=== PATIENT | male | born 1935 | race Caucasian/White ===

== ENCOUNTER 2019-12-03 09:50 | Emergency (ER) | payer MEDICARE ==
[2019-12-03 10:10] LABS: ABS Basophils 0.1 10^3/ul (0-0.2); ABS Eosinophils 0.1 10^3/ul (0-0.6); ABS Lymphocytes 1.5 10^3/ul (1.0-4.8); ABS Monocytes 0.5 10^3/ul (0-0.8); ABS Neutrophils 5.1 10^3/ul (1.5-7.7); Eosinophil % 1.9 %; Hematocrit 40 % (42-52); Hemoglobin 13.5 g/dL (14.0-18.0); Lymphocyte % 20.8 %; Mean Corpuscular HGB Conc 34 g/dL (31-36); Mean Corpuscular Hemoglobin 27 pg (27-31); Mean Corpuscular Volume 81 fL (80-94); Mean Platelet Volume 6.6 fL (7.4-10.4); Platelet Count 306 10^3/uL (150-450); Red Blood Count 4.97 10^6 /uL (4.18-5.48); Red Cell Distribution Width 16 % (10-15); White Blood Count 7.4 10^3/uL (3.5-10.8)
--- OUTSIDE RECORDS SUMMARY | 2019-12-03 10:11 | XMS REPORT | Summary of Care ---
:1935 Author Organization [facility] Address [address] [place] [address] Care Team Providers Name Role Phone Emily Pineda Primary Care Provider Reason for Visit Reason Comments Follow Up to labs , pt c/o mucus cough with brown in color Encounter Details Date Type Department Care Team Description 11/15/2019 Office Visit Noelle Pineda, Uncontrolled type 2 diabetes mellitus with complication, without long-term current use of insulin ( HCC) (Primary Dx); Practice MD Emily Chronic cough; [address] [facility] [address] Dyslipidemia; [place], [place] [id number] [place] [id number] Essential hypertension; [phone] Elevated blood protein; Atrial fibrillation, unspecified type (HCC) Allergies No Known Allergiesdocumented as of this encounter (statuses as of 11/15/2019) Medications Medication Sig Dispensed Refills Start Date End Date Status Multiple Vitamin (MULTI Take by mouth. 0 Active VITAMIN DAILY PO) Colchicine 0.6 MG Oral Take 0.6 mg by 10 Cap 2 05/22/2017 Active Cap mouth TWICE DAILY. Additional information Patient taking differently: 0.6 mg Oral PRN, Reported on 07/23/2017 10:04 AM amLodipine (NORVASC) 5 MG TAKE ONE TABLET BY MOUTH 90 Tab 1 06/07/2019 Active Oral Tab EVERY DAY ELIQUIS 2.5 MG Oral Tab TAKE ONE TABLET BY MOUTH 180 Tab 1 06/07/2019 Active TWICE A DAY ACCU-CHEK ARTURO PLUS In USE TO TEST TWICE A DAY 100 Strip 5 06/28/2019 Active Vitro StripIndications: Type DIRECTED 2 diabetes mellitus without complication, without long-term current use of insulin (HCC) simvastatin (ZOCOR) 40 MG TAKE ONE TABLET BY MOUTH 90 Tab 1 07/26/2019 Active Oral Tab EVERY DAY glipiZIDE (GLUCOTROL) 5 MG TAKE ONE TABLET BY MOUTH 90 Tab 1 07/26/2019 Active Oral Tab EVERY DAY allopurinol (ZYLOPRIM) 100 TAKE ONE TABLET BY MOUTH 90 Tab 1 08/12/2019 Active MG Oral Tab EVERY DAY Lancets Does not apply 1 Each by Does not apply 100 Each 5 09/01/2019 Active MiscIndications: Type 2 route TWICE DAILY. diabetes mellitus without Brand:insurance preferred complication, without non-Insulin dependent long-term current use of Test Blood Glucose 2 insulin (HCC) time(s) A DAY Blood Glucose Monitor 1 Device by Does not 1 Device 0 10/12/2019 Active Software Does not apply apply route DIRECTED. Device E11,9 diabetes. Brand: Insurance preferred Glucose Blood In Vitro Strip 1 Strip by In Vitro route 100 Each 1 2018 Active TWO TIMES DAILY BEFORE MEALS. E11.9 insurance preferred Lancets Does not apply Misc 1 Each by Does not apply 100 Each 1 10/12/2019 Active route TWICE DAILY. Brand: insurance preferred Dx: E11.9 Test Blood Glucose BID time(s) A DAY documented as of this encounter (statuses as of 11/15/2019) Active Problems Problem Noted Date Uncontrolled type 2 diabetes mellitus with complication, without long-term current use of insulin Abnormal stress test 12/23/2014 Paroxysmal atrial fibrillation 12/23/2014 PVD (peripheral vascular disease) 12/23/2014 Essential hypertension, benign 05/16/2014 Osteoarthritis 11/04/2013 Overview: Hand, knees, elbows, lower back. Basal cell cancer 11/04/2013 Overview: 2 lesions removed from back BMI 30.0-30.9,adult 05/20/2012 Overview: sustained wt reduction with portion control and sustained routine exercise. Set realistic goal of 1# wt reduction /week set 10 week goals. Obesity 10/19/2007 Neuropathic pain syndrome (non-herpetic) 06/21/2004 Overview: In legs. Occlusion and stenosis of carotid artery without mention of cerebral 2003 infarction Overview: Left carotid artery surgery and stent, 2003. Stable on right . Spinal stenosis 12/12/2003 Hyperlipidemia 12/24/1999 documented as of this encounter (statuses as of 11/15/2019) Resolved Problems Problem Noted Date Resolved Date Atrial fibrillation 12/26/2014 12/26/2014 Hypertension 12/24/1999 05/16/2014 Arthritis 12/24/1999 11/04/2013 documented as of this encounter (statuses as of 11/15/2019) Immunizations Name Administration Dates Next Due Influenza (IM) Preservative Free 08/25/2013, 08/12/2012, 09/26/2000 Influenza Vaccine 65 Yrs + 08/10/2019 Influenza Vaccine High Dose 06/04/2018, 06/26/2017, 07/10/2016, 08/19/2015 PNEUMOCOCCAL POLYSACCHARIDE VACCINE 10/04/2014, 09/26/2000 Pneumococcal Conjugate(13 Valent) 08/07/2016 TDAP Vaccine 11/22/2016 documented as of this encounter Social History Tobacco Use Types Packs/Day Years Used Date Former Smoker Cigarettes 1.5 25 Quit: 09/21/2000 Smokeless Tobacco: Never Used Alcohol Use Drinks/Week oz/Week Comments Yes rarely Sex Assigned at Date Recorded Not on file Job Start Date Occupation Industry Not on file Not on file Not on file Travel History Travel Start Travel End No recent travel history available. documented as of this encounter Last Filed Vital Signs Vital Sign Reading Time Taken Comments Blood Pressure 160/80 11/15/2019 8:54 AM EST Pulse 73 11/15/2019 8:54 AM EST Temperature 37.2 11/15/2019 8:54 AM EST C (99 F) Respiratory Rate - - Oxygen Saturation 95% 11/15/2019 8:54 AM EST Inhaled Oxygen Concentration - - Weight 87.1 kg (192 lb 1.6 oz) 11/15/2019 8:54 AM EST Height 171.5 cm (5' 7.5") 11/15/2019 8:54 AM EST Body Mass Index 29.64 11/15/2019 8:54 AM EST documented in this encounter Patient Instructions Patient InstructionsEmily Pineda MD - 11/15/2019 9:00 AM EST1. Take Augmentin 500 mg 2 times a day for 10 days 2. Take Flonase nasal spray 2 sprays in each nostril once a day 3. Take Mucinex 600 mg 2 times a day 4. Follow up in 2 weeks and as needed 5. Schedule fasting blood tests in 3 months documented in this encounter Progress Notes Emily Pineda MD - 11/15/2019 9:00 AM EST PATIENT: Armen Gonzalez : 1935 DATE OF SERVICE: 11/15/2019 Subjective SUBJECTIVE: Armen Gonzalez is a 84-y.o. male who presents for evaluation of productive cough with sputum described as brown, postnasal drip, some wheezing with cough. Symptoms began 2 months ago and are unchanged since that time. Former smoker. Quit in 1999 Diabetic Review of Systems - medication compliance: compliant all of the time, diabetic diet compliance: compliant most of the time, home glucose monitoring: is performed regularly, fasting values range 120-130, non fasting values range 90-115. BP is elevated today Past Medical History: Diagnosis Date Atrial fibrillation ([facility]) Carotid stenosis CKD (chronic kidney disease) stage 3, GFR 30-59 ml/min ([facility]) CVA (cerebral vascular accident) ([facility]) 09/20/2000 HTN (hypertension) Hyperlipemia Sleep apnea uses CPAP Family History Problem Relation Age of Onset Diabetes Brother Stroke Brother Heart Son 49 [place] Diabetes Sister Hypertension Sister Heart Sister Kidney Disease Sister Current Outpatient Medications Medication Sig ACCU-CHEK ARTURO PLUS In Vitro Strip USE TO TEST TWICE A DAY DIRECTED allopurinol (ZYLOPRIM) 100 MG Oral Tab TAKE ONE TABLET BY MOUTH EVERY DAY amLodipine (NORVASC) 5 MG Oral Tab TAKE ONE TABLET BY MOUTH EVERY DAY Blood Glucose Monitor Software Does not apply Device 1 Device by Does not apply route DIRECTED. E11,9 diabetes. Brand: Insurance preferred Colchicine 0.6 MG Oral Cap Take 0.6 mg by mouth TWICE DAILY. (Patient taking differently: Take 0.6 mg by mouth NEEDED.) ELIQUIS 2.5 MG Oral Tab TAKE ONE TABLET BY MOUTH TWICE A DAY glipiZIDE (GLUCOTROL) 5 MG Oral Tab TAKE ONE TABLET BY MOUTH EVERY DAY Glucose Blood In Vitro Strip 1 Strip by In Vitro route TWO TIMES DAILY BEFORE MEALS. E11.9 insurance preferred Lancets Does not apply Misc 1 Each by Does not apply route TWICE DAILY. Brand:insurance preferred non-Insulin dependent Test Blood Glucose 2 time(s) A DAY Lancets Does not apply Misc 1 Each by Does not apply route TWICE DAILY. Brand: insurance preferred Dx: E11.9 Test Blood Glucose BID time(s) A DAY Multiple Vitamin (MULTI VITAMIN DAILY PO) Take by mouth. simvastatin (ZOCOR) 40 MG Oral Tab TAKE ONE TABLET BY MOUTH EVERY DAY No current facility-administered medications for this visit. No Known Allergies Social History Socioeconomic History Marital status: Spouse name: Not on file Number of children: Not on file Years of education: Not on file Highest education level: Not on file Occupational History Not on file Social Needs Financial resource strain: Not on file Food insecurity Worry: Not on file Inability: Not on file Transportation needs Medical: Not on file Non-medical: Not on file Tobacco Use Smoking status: Former Smoker Packs/day: 1.50 Years: 25.00 Pack years: 37.50 Types: Cigarettes Last attempt to quit: 09/21/2000 Years since quittin.1 Smokeless tobacco: Never Used Substance and Sexual Activity Alcohol use: Yes Comment: rarely Drug use: No Sexual activity: Not on file Lifestyle Physical activity Days per week: Not on file Minutes per session: Not on file Stress: Not on file Relationships Social connections Talks on phone: Not on file Gets together: Not on file Attends uatsdin service: Not on file Active member of club or organization: Not on file Attends meetings of clubs or organizations: Not on file Relationship status: Not on file Intimate partner violence Fear of current or ex partner: Not on file Emotionally abused: Not on file Physically abused: Not on file Forced sexual activity: Not on file Other Topics Concern Back Care Not Asked Bike Helmet Not Asked Blood Transfusions Not Asked Caffeine Concern Yes Comment: 4 cups coffee daily Exercise Not Asked Hobby Hazards Not Asked International Travel Not Asked Service Not Asked Occupational Exposure Not Asked Seat Belt Not Asked Self-Exams Not Asked Sleep Concern Not Asked Special Diet Not Asked Stress Concern Not Asked Weight Concern Not Asked Social History Narrative 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 and 3 sons. REVIEW OF SYSTEMS: All remaining review of systems was negative. Objective OBJECTIVE: BP (!) 160/80 (BP Location: Right arm, Patient Position: Sitting) | Pulse 73 | Temp 99 F (37.2C) | Ht 5' 7.5" (1.715 m) | Wt 192 lb 1.6 oz (87.1 kg ) | SpO2 95% | BMI 29.64 kg/m GENERAL: alert, fatigued. HEENT: neck without nodes, pharynx erythematous without exudate, sinuses non tender and postnasal drip noted. LUNGS: Reduced breath sound at the L base. HEART: regular rate and rhythm, S1, S2 normal, no murmur, click, rub or gallop. HGA1C - 8.3, CMP - elevated sugar, elevated T protein, CBC - elevated Platelets Component Latest Ref Rng & Units 11/08/2019 11/08/2019 11/08/2019 8:48 AM 8:48 AM 8:48 AM WBC COUNT 4.23 - 9.07 K/uL 7.99 RBC 4.30 - 5.89 M/UL 5.71 Hemoglobin 13.7 - 17.5 g/dL 14.9 Hematocrit 40.1 - 51.0 % 48.5 MCV 79.0 - 92.2 FL 84.9 MCH 25.7 - 32.2 PG 26.1 MCHC 32.3 - 36.5 g/dL 30.7 (L) Platelet Count 163 - 337 K/uL 343 (H) MPV 9.4 - 12.4 FL 9.2 (L) RDW 11.6 - 14.4 % 15.0 (H) NEUTROPHILS 34.0 - 67.9 % 71.1 (H) Lymphocyte % 21.8 - 53.1 % 17.8 (L) MONOCYTES 5.3 - 12.2 % 7.0 Eosinophils 0.8 - 7.0 % 2.5 Basophil % 0.2 - 1.2 % 1.1 nRBC % 0.0 - 0.2 % 0.0 Neutrophil # 1.78 - 5.38 K/UL 5.68 (H) Lymphocyte # 1.32 - 3.57 K/UL 1.42 Monocyte # 0.30 - 0.82 K/UL 0.56 Eosinophil # 0.04 - 0.54 K/UL 0.20 Basophil # 0.01 - 0.08 K/UL 0.09 (H) Immature Gran % 0.0 - 0.4 % 0.5 (H) Immature Gran # 0.00 - 0.03 K/uL 0.04 (H) NRBC # 0.00 - 0.12 K/uL 0.00 Sodium 134 - 145 mmol/L 137 Potassium 3.5 - 5.1 mmol/L 4.5 Chloride 98 - 107 mmol/L 100 CO2 22 - 30 mmol/L 28 Calcium 8.3 - 10.1 mg/dl 10.2 (H) Albumin 3.5 - 5.0 g/dl 4.3 BUN 9 - 20 mg/dl 20 Creatinine 0.8 - 1.5 mg/dl 1.2 Glucose (Lab) 70 - 99 mg/dl 125 (H) Protein,Total 6.3 - 8.2 g/dl 9.0 (H) Total Bilirubin 0.0 - 1.1 MG/DL 0.5 AST 17 - 59 U/L 30 ALT 21 - 72 U/L 25 ALKALINE PHOSPHATASE 40 - 150 U/L 112 eGFR See Interpretation Below ml/min/1.73ml Sq 58 BUN/Creatinine Ratio 6 - 22 RATIO 17 Anion Gap 3 - 11 mmol/L 9 A/G Ratio 0.8 - 2.0 ratio 0.9 Glycohemoglobin - POCT <=5.6 % 8.3 (H) Patient advised on tests results ICD-9-CM ICD-10-CM 1. Uncontrolled type 2 diabetes mellitus with complication, without long-term current use of insulin([facility]) 250.82 E11.8 Sugar diary - good readings over last month. Will continue to monitor E11.65 2. Chronic cough Likely chronic sinusitis, postnasal drip 786.2 R05 XR CHEST 2 VIEW PA AND LATERAL (STANDARD) 3. Dyslipidemia 272.4 E78.5 4. Essential hypertension Will recheck next visit Not on TOBI due to hyperkalemia 401.9 I10 5. Elevated blood protein 273.8 E88.09 6. Atrial fibrillation, unspecified type ([facility]) 427.31 I48.91 Patient Instructions 1. Take Augmentin 500 mg 2 times a day for 10 days 2. Take Flonase nasal spray 2 sprays in each nostril once a day 3. Take Mucinex 600 mg 2 times a day 4. Follow up in 2 weeks and as needed 5. Schedule fasting blood tests in 3 months Author: Emily Pineda MD 11/15/2019 09:25 documented in this encounter Plan of Treatment Date Type Specialty Care Team Description 11/15/2019 Ancillary Procedure Radiology Arrived 11/30/2019 Office Visit Family Practice Emily Pineda MD [address] [place] [address] [phone] 02/15/2020 Lab Internal Medicine 08/09/2020 Ancillary Procedure Radiology 08/09/2020 Office Visit Vascular Surgery Brittny Duque, [employer] [address] [address] Name Type Priority Associated Diagnoses Date/Time XR CHEST 2 VIEW PA AND Imaging Routine Chronic cough 11/15/2019 9:37 AM EST LATERAL (STANDARD) Name Type Priority Associated Diagnoses Order Schedule COMPREHENSIVE METABOLIC Lab Routine Uncontrolled type 2 Expected: 2019 PANEL diabetes mellitus with (Approximate), complication, without Expires: 11/15/2020 long-term current use of insulin (HCC) Dyslipidemia LIPID PROFILE Lab Routine Dyslipidemia Expected: 11/15/2019 (Approximate), Expires: 11/15/2020 GLYCOHEMOGLOBIN A1C Lab Routine Uncontrolled type 2 Expected: 11/15/2019 diabetes mellitus with (Approximate), complication, without Expires: 11/15/2020 long-term current use of insulin (HCC) CBC WITH DIFFERENTIAL Lab Routine Atrial fibrillation, Expected: 11/15/2019 unspecified type (HCC) (Approximate), Expires: 11/15/2020 PROTEIN ELECTRO, SERUM Lab Routine Elevated blood protein Expected: 2019 REFLEX (Approximate), Expires: 11/15/2020 Health Maintenance Due Date Last Done Comments Diabetic Eye Exam 12/23/2019 12/22/2018, 12/19/2017, 12/13/2016, Additional history exists DEPRESSION SCREENING 01/29/2020 01/28/2019 FOOT EXAM 01/29/2020 01/28/2019, 01/28/2019, 12/23/2017, Additional history exists URINE MICROALBUMIN 01/29/2020 01/28/2019, 12/23/2017, 11/22/2016 HEMOGLOBIN A1C 02/07/2020 11/08/2019, 08/03/2019, 04/28/2019, Additional history exists FALL RISK ASSESSMENT 05/05/2020 05/05/2019, 05/05/2019 MEDICARE ANNUAL WELLNESS 05/05/2020 05/05/2019, 12/23/2017, VISIT 11/22/2016, Additional history exists ZOSTER IMMUNIZATION SERIES 11/15/2020 Postponed from (1 of 2) 1986 (Vaccine not available) Colonoscopy 07/16/2021 07/16/2016 (Postponed), 08/26/2011, 08/23/2011 HIV SCREENING 05/21/2022 Postponed from 1951 (Other) DTaP/Tdap/Td Vaccines (2 - 11/22/2026 11/22/2016 Tdap) PNEUMOCOCCAL 65+YRS Completed 08/07/2016, 10/04/2014, 09/26/2000 INFLUENZA VACCINE Completed 08/10/2019, 06/04/2018, 06/26/2017, Additional history exists HEPATITIS A IMMUNIZATION Aged Out No longer eligible SERIES based on patient's age to complete this topic HPV IMMUNIZATION SERIES Aged Out No longer eligible based on patient's age to complete this topic MENINGOCOCCAL VACCINE IMM Aged Out No longer eligible based on patient's age to complete this topic documented as of this encounter Goals Goal Patient Goal Associated Recent Patient-Stated? Author Type Problems Progress Blood Pressure Blood Pressure Essential 160/80 No Miriam, < 140/90 hypertension, (11/15/2019 Emily, benign 8:54 AM EST) Note: Hypertension Care Plan Based on the patient's clinical history and according to JNC 8 guidelines target blood pressure goal is less than 140/90. Based on the patient's last blood pressure of BP: 160/86 the patient is at above goal. As your provider, it is important that I advise you regarding: your current medications and help you with any challenges you may face taking your medications as directed (ex. instructions, cost, side effects, and interactions). Important lifestyle changes: exercise and diet your clinical goals and how you can achieve success: exercise plan and diet improvements medication management: adjusted medications as appropriate patient education/self-management tools provided: Yes To successfully manage my Hypertension I will: monitor my blood pressure daily, understanding that my goal is less than 140/ 90 per my healthcare provider's recommendation. I will schedule an appointment with my provider if consistent abnormal readings greater than 160/100. take medications every day as prescribed by my healthcare provider and if unable to take them I will discuss with my provider. monitor for symptoms of chest pain, chest tightness/pressure, irregular heartbeat, persistent dizziness, radiating arm pain, and neck or jaw pain. If any of these symptoms are noticed I will seek medical attention immediately by calling 911 exercise/walk 30 minutes 5 day(s) per week. If I experience chest pain, chest tightness, or shortness of breath, I will seek medical attention immediately. follow a diet rich in fruits, vegetables, and low-fat dairy products with reduced content of saturated & total fat. I will reduce my sodium intake daily. An example is the DASH diet. To obtain more information please refer to the DASH Eating Plan listed in Educational Resources. record my blood pressure results. [employer] is safe and secure way for you to do this in your medical record online. try to obtain an ideal body weight. My recent weight was Weight: 201 lb ( 91.2 kg). My weight loss goal for my next office visit is 195. limit alcohol consumption. For men two drinks per day and women one drink per day. if currently smoking, will discuss how to quit smoking with my healthcare provider and work towards quitting. Educational Resources: National Heart, Lung, & Blood [place] http://nhlbi.nih.gov/hbp/index.html The DASH Diet Eating Plan http://www.nhlbi.nih.gov/health/health-topics/ topics/dash/ Academy of Nutrition & DIetetics http://eatright.org National Smoking Cessation Site http://smokefree.gov Blood Pressure < Blood Pressure 160/80 (11/15/2019 No Emily Pineda, 150/90 8:54 AM EST) Note: This is an individualized treatment (blood pressure) goal for Armen Zamarripa Lisa: Displayed above (on the left) is your goal for blood pressure control. Your most recent blood pressure is also shown above, on the right. You should try to achieve blood pressures that are lower than your goal listed above (on the left). Lifestyle < 7.0 Diabetes Uncontrolled type 2 8.3 (11/08/2019 No Miriam, diabetes mellitus 8:48 AM EST) MD Emily with complication, without long-term current use of insulin Note: Diabetes Care Plan According to current 2014 ADA guidelines the patient A1C goal is less than 7. The patient's last A1C was 7.4 The patient is:above goal . As your provider, it is important that I advise you regarding: your current medications and help you with any challenges you may face taking your medications as directed (ex. instructions, cost, side effects, and interactions). Important lifestyle changes:diet and glucose monitoring your clinical goals and how you can achieve success:diet management and glucose monitoring medication management: N/A diet only patient education/self-management tools provided: Yes To successfully manage my Diabetes I will: have lab work every six months if my previous A1c was 7 or less. If my results were greater than 7, I will have lab work every three months. My goal is to control my diabetes by keeping A1c below 7.0 take medications every day as prescribed by my healthcare provider and if unable to take them I will discuss with my provider. exercise/walk 30 minutes 5 day(s) per week. If I experience chest pain, chest tightness, or shortness of breath, I will seek medical attention immediately. check feet daily. If sores or irritation are noticed, will seek medical attention. follow a low carbohydrate and low fat diet. My goal is an LDL (bad cholesterol) number less than 100 when I have my routine lab work. check blood sugar as instructed and will call my healthcare provider if the results are consistently below 70 or above 300. I will monitor for symptoms of low blood sugar (feeling faint, dizzy, lig htheaded, jittery, sweaty, or hungry), if symptoms are noticed, I will eat or drink something (glucose tabs, orange juice, candy) to help raise sugar. record my blood sugar results (including dextrose sticks). [employer] is safe and secure way for you to do this in your medical record online. try to obtain an ideal body weight. My recent weight was Weight: 201 lb ( 91.2 kg). My weight loss goal for my next office visit is 195. to prevent kidney problems common to people with diabetes I will complete a yearly Microalbumin to check for protein in urine. I will talk with my healthcare provider about medications to prevent diabetic renal disease. to prevent diabetic retinopathy I will see an eye doctor yearly. A yearly dilated eye exam helps prevent blindness. if currently smoking, will discuss how to quit smoking with my healthcare provider and work towards quitting. Glycohemoglobin A1c < 8.0 Diabetes 8.3 (11/08/2019 8:48 No Emily Pineda AM EST) MD Note: This is an individualized treatment (diabetes control, HgbA1C) goal for Armen Gonzalez: Displayed above is your progress towards your HgbA1C goal. Your goal is shown above (on the left); your most recent HgbA1C is shown on the right. Note that lower numbers are better. Keep immunizations current Lifestyle Emily Robison MD Note: This is an individualized lifestyle goal for Armen Gonzalez: Please be sure to keep up-to-date on recommended immunizations. For example, this would include a yearly influenza vaccine. Immunization status can be seen by looking at the Health Maintenance sections of your [employer], Plan of Care, and any After Visit Summaries. Weight loss vs. 18 mo Lifestyle 3.3 (11/15/2019 8:54 AM No Emily Pineda MD max (lbs) >= 10 EST) Note: This is an individualized lifestyle goal for Armen Gonzalez: Your body mass index (BMI) is more than 30. You should lose weight. A reasonable starting goal is to lose 10 pounds. Displayed above is how many pounds you have lost thus far towards your 10 pound weight loss goal. Take all prescribed medications as Self-management No Emily Pineda MD directed Note: This is an individualized self-management goal for Armen Gonzalez: Please take all prescribed medications as directed. 1. Do not skip doses. If you cannot afford your medications, talk with your doctor. 2. Use a pill reminder system such as a pill box if needed. Your pharmacist can help you with this. 3. Contact your Pharmacy 5 days before your medication runs out. If you cannot take your medications for any reasons, talk with your doctor. 4. Please bring all of your medication bottles and inhalers (or a list of all your medications/inhalers) with you to every visit. Potential barriers to meeting all of your care plan goals will continue to be addressed on an ongoing basis. documented as of this encounter Results Not on filedocumented in this encounter Visit Diagnoses Diagnosis Chronic cough Cough Uncontrolled type 2 diabetes mellitus with complication, without long-term current use of insulin (HCC) Dyslipidemia Other and unspecified hyperlipidemia Essential hypertension Unspecified essential hypertension Elevated blood protein Other disorders of plasma protein metabolism Atrial fibrillation, unspecified type (HCC) documented in this encounter Insurance Payer Benefit Plan / Subscriber ID Effective Dates Phone Address Type Group MEDICARE MEDICARE PART A xxxxxxxxxxx 2001-Present Medicare & B [facility] CARE xxxxxxxxxxx 2016-Present [facility] [employer] Guarantor Name Account Type Relation to Date of Phone Billing Address Patient Armen Gonzalez Personal/Famil 1935 [id number] [phone] [place], [place] ([place]) [id number] documented as of this encounter
--- OUTSIDE RECORDS SUMMARY | 2019-12-03 10:11 | XMS REPORT | Summary of Care ---
:1935 Author Organization [facility] Address [address] [address] Care Team Providers Name Role Phone Emily Pineda Primary Care Provider Reason for Referral Refer to Department Only (Routine) Status Reason Specialty Diagnoses / Referred By Referred To Procedures Contact Contact Authorized CARDIAC SURGERY / Diagnoses Mass of right lung Miriam, Cardiac Surgery MD Emily [address] [place] [address] Refer to Department Only (Routine) Status Reason Specialty Diagnoses / Referred By Referred To Procedures Contact Contact Authorized PULMONARY / Diagnoses Mass of right lung Miriam, Pulmonary MD Emily [address] [place] [address] Reason for Visit Reason Comments Follow Up uncontrolled type 2 diadetes Encounter Details Date Type Department Care Team Description 11/30/2019 Office Visit [facility] Miriam Mass of right lung Practice MD Emily (Primary Dx) [address] [facility] [address] [place], [place] [id number] [place] [address] [phone] Allergies No Known Allergiesdocumented as of this encounter (statuses as of 11/30/2019) Medications Medication Sig Dispensed Refills Start Date End Date Status Multiple Vitamin (MULTI Take by mouth. 0 Active VITAMIN DAILY PO) Colchicine 0.6 MG Oral Take 0.6 mg by 10 Cap 2 05/22/2017 Active Cap mouth TWICE DAILY. Additional Information Patient taking differently: 0.6 mg Oral PRN, [...] Test Blood Glucose BID time(s) A DAY fluticasone (FLONASE) 50 [place] 2 Sprays in nose 16 g 0 11/16/2019 Active MCG/ACT Nasal Suspension DAILY. guaifenesin (MUCINEX) 600 MG Take 1 Tab by mouth TWICE 60 Tab 1 11/16/2019 Active Oral TABLET SR 12 HR DAILY. documented as of this encounter (statuses as of 11/30/2019) Active Problems Problem Noted Date Uncontrolled type [...] as of this encounter (statuses as of 11/30/2019) Resolved Problems Problem Noted Date Resolved Date Atrial fibrillation 12/26/2014 12/26/2014 Hypertension 12/24/1999 05/16/2014 Arthritis 12/24/1999 11/04/2013 documented as of this encounter (statuses as of 11/30/2019) Immunizations Name Administration Dates Next Due Influenza [...] Assigned at Date Recorded Not on file documented as of this encounter Last Filed Vital Signs Vital Sign Reading Time Taken Comments Blood Pressure 132/60 11/30/2019 9:47 AM EST Pulse 75 11/30/2019 9:47 AM EST Temperature 37.6 11/30/2019 9:47 AM EST C (99.6 F) Respiratory Rate - - Oxygen Saturation 95% 11/30/2019 9:47 AM EST Inhaled Oxygen Concentration - - Weight 85.8 kg (189 lb 3.2 oz) 11/30/2019 9:47 AM EST Height 170.2 cm (5' 7") 11/30/2019 9:47 AM EST Body Mass Index 29.63 11/30/2019 9:47 AM EST documented in this encounter Patient Instructions Patient InstructionsEmily Pineda MD - 11/30/2019 10:00 AM EST1. Schedule appointment with pulmonary and thoracic surgeon documented in this encounter Progress Notes Emily Pineda MD - 11/30/2019 10:00 AM EST Patient: Armen Gonzalez Date of Service: 11/30/2019 Subjective: rAmen Gonzalez is a 84-y.o. male who presents for Chief Complaint Patient presents with ? Follow Up uncontrolled type 2 diadetes Patient comes follow up chronic cough that is much improved on Augmentin. Also Chest X-ray - showed R lung mass Past Medical History: Diagnosis Date ? Atrial fibrillation ([facility]) ? Carotid stenosis ? CKD (chronic kidney disease) stage 3, GFR 30-59 ml/min ([facility]) ? CVA (cerebral vascular accident) ([facility]) 09/20/2000 ? HTN (hypertension) ? Hyperlipemia ? Sleep apnea uses CPAP Outpatient Medications as of 11/30/2019 Medication Sig Dispense Refill ? ACCU-CHEK ARTURO PLUS In Vitro Strip USE TO TEST TWICE A DAY DIRECTED 100 Strip 5 ? allopurinol (ZYLOPRIM) 100 MG Oral Tab TAKE ONE TABLET BY MOUTH EVERY DAY 90 Tab 1 ? amLodipine (NORVASC) 5 MG Oral Tab TAKE ONE TABLET BY MOUTH EVERY DAY 90 Tab 1 ? Blood Glucose Monitor Software Does not apply Device 1 Device by Does not apply route DIRECTED. E11,9 diabetes. Brand: Insurance preferred 1 Device 0 ? Colchicine 0.6 MG Oral Cap Take 0.6 mg by mouth TWICE DAILY. (Patient taking differently: Take 0.6 mg by mouth NEEDED.) 10 Cap 2 ? ELIQUIS 2.5 MG Oral Tab TAKE ONE TABLET BY MOUTH TWICE A DAY 180 Tab 1 ? fluticasone (FLONASE) 50 MCG/ACT Nasal Suspension [place] 2 Sprays in nose DAILY. 16 g 0 ? glipiZIDE (GLUCOTROL) 5 MG Oral Tab TAKE ONE TABLET BY MOUTH EVERY DAY 90 Tab 1 ? Glucose Blood In Vitro Strip 1 Strip by In Vitro route TWO TIMES DAILY BEFORE MEALS. E11.9 insurance preferred 100 Each 1 ? guaifenesin (MUCINEX) 600 MG Oral TABLET SR 12 HR Take 1 Tab by mouth TWICE DAILY. 60 Tab 1 ? Lancets Does not apply Misc 1 Each by Does not apply route TWICE DAILY. Brand:insurance preferred non-Insulin dependent Test Blood Glucose 2 time(s) A DAY 100 Each 5 ? Lancets Does not apply Misc 1 Each by Does not apply route TWICE DAILY. Brand: insurance preferred Dx: E11.9 Test Blood Glucose BID time(s) A DAY 100 Each 1 ? Multiple Vitamin (MULTI VITAMIN DAILY PO) Take by mouth. ? simvastatin (ZOCOR) 40 MG Oral Tab TAKE ONE TABLET BY MOUTH EVERY DAY 90 Tab 1 No current facility-administered medications on file as of 11/30/2019. No Known Allergies Review of Systems: All remaining review of systems was negative. Objective: BP 132/60 (BP Location: Left arm, Patient Position: Sitting) Pulse 75 Temp 99.6 F (37.6 C) Ht 5' 7" (1.702 m) Wt 189 lb 3.2 oz (85.8 kg) SpO2 95 % BMI 29.63 kg/m2 GENERAL: alert, no distress CT of the chest: 1. Large, well-defined focus of airspace consolidation in the lateral right upper lung and extending into the right lung apex, and contiguous with the right hilum. Measurements are approximately 10.3 cm (AP) by 6.2 cm (transverse) by 10.6 cm (craniocaudal), with a fairly discrete hypodense focus inferiorly measuring approximately 4.5 cm (AP) by 4.6 cm (transverse) by 4.5 cm (craniocaudal). Findings are concerning for a central neoplasm, which may be necrotic, with surrounding postobstructive collapse. 2. Enlarged thoracic lymph nodes concerning for involvement by potential neoplasm. Patient and his advised on tests results ICD-9-CM ICD-10-CM 1. Mass of right lung 786.6 R91.8 REFER TO PULMONARY REFER TO CARDIO / THORACIC SURGERY Patient Instructions 1. Schedule appointment with pulmonary and thoracic surgeon Author: Emily Pineda MD documented in this encounter Plan of Treatment Date Type Specialty Care Team Description 12/06/2019 Office Visit Cardiac Surgery Nasim Jackson MD [address] [address] 12/07/2019 Office Visit Pulmonary Evon Reed MD [address] [place] [address] 02/15/2020 Lab Internal Medicine 08/09/2020 Ancillary Procedure Radiology 08/09/2020 Office Visit Vascular Surgery Brittny Duque FNP [address] [place] [address] Name Type Priority Associated Diagnoses Order Schedule REFER TO PULMONARY Referral Routine Mass of right lung Expected: 11/30/2019 , Expires: 11/30/2020 REFER TO CARDIO / Referral Routine Mass of right lung Expected: 11/30/2019, THORACIC SURGERY Expires: 11/30/2020 Health Maintenance Due Date Last Done Comments [...] Problems Progress Blood Pressure Blood Pressure Essential 132/60 No [place], < 140/90 hypertension, (11/30/2019 Emily, jas 9:47 AM EST) Note: Hypertension Care Plan Based [...] Educational Resources. record my blood pressure results. [employer] is safe and secure way for you [...] Educational Resources: National Heart, Lung, & Blood [place] http://nhlbi.nih.gov/hbp/index.html The DASH Diet Eating Plan http://www.nhlbi.nih.gov/health/health-topics/ topics/dash/ Academy of Nutrition & DIetetics http://eatright.org National Smoking Cessation Site http://smokefree.gov Blood Pressure < Blood Pressure 132/60 (11/30/2019 No Emily Pineda, 150/90 9:47 AM EST) Note: This is an individualized treatment (blood pressure) goal for Armen Gonzalez: Displayed above (on the left) is your goal for blood pressure control. Your most recent blood pressure is also shown above, on the right. You should try to achieve blood pressures that are lower than your goal listed above (on the left). Lifestyle < 7.0 Diabetes Uncontrolled type 2 8.3 (11/08/2019 Luz Pineda, diabetes mellitus 8:48 AM EST) MD Emily [...] my blood sugar results (including dextrose sticks). [employer] is safe and secure way for you [...] Summaries. Weight loss vs. 18 mo Lifestyle 6.2 (11/30/2019 9:47 AM No Emily Pineda MD max (lbs) >= 10 EST) Note: This is an individualized lifestyle goal for Armen Marilou Lisa: Your body mass index (BMI) is more [...] filedocumented in this encounter Visit Diagnoses Diagnosis Mass of right lung documented in this encounter Insurance Payer Benefit Plan / Subscriber ID Effective Dates Phone Address Type Group MEDICARE MEDICARE PART A [id number] 2001-Present Medicare & B [facility] CARE [id number] 2016-Present [facility] OPTIONS Guarantor Name Account Type Relation to Date of Phone Billing Address Patient Armen Gonzalez Personal/Famil 1935 [id number] [phone] [place], [place] (Work) [id number] documented as of this encounter
[2019-12-03 10:27] LABS: INR 1.28 (0.82-1.09)
[2019-12-03 10:36] LABS: Albumin 3.6 g/dL (3.2-5.2); Albumin/Globulin Ratio 0.8 (1-3); BUN/Creatinine Ratio 18.2 (8-20); Calcium 9.5 mg/dL (8.6-10.3); EGFR African American 77.4 (>60); EGFR Non-African American 63.9 (>60); Globulin 4.5 g/dL (2-4); Potassium 4.4 mmol/L (3.5-5.0); Total Bilirubin 0.5 mg/dL (0.2-1.0); Total Protein 8.1 g/dL (6.4-8.9)
[2019-12-03 10:38] LABS: Troponin I 0.01 ng/mL (<0.03)
[2019-12-03 11:02] LABS: Magnesium 1.7 mg/dL (1.9-2.7)
[2019-12-03] MEDS ORDERED: Iodixanol* (CONTRAST) 320 MG/ML 100 ML SDV IV ONE (11:49)
[2019-12-03 14:24] VITALS: BP 140/83
--- NOTE | 2019-12-03 14:34 | ED ---
HPI Cardiac - HPI Summary HPI Summary: This patient is an 84-year-old male with a history of hypertension and hypercholesterolemia presenting to the ED with cough with associated left-sided chest pain. He states he has had this cough for approximately 8-9 months. Just recently developed chest pain associated with the cough. Denies any chest pain at rest. Denies any fevers, sweats, chills. Patient was seen by his PCP, Dr. Ríos, who gave antibiotics x 10 days following a chest xray with moderate symptom improvement. Chest xray showed no evidence of a clear PNA, but rather a large RUL mass. This was confirmed with a CT with contrast which showed a large consolidation of the right lung apex consistent with neoplasm. Patient states while symptoms of the chest pain related to cough were worse last night then previously over the past 10 days, he does feel improved now. He states symptoms arent a 3/10 only with cough. - History of Current Complaint Chief Complaint: EDChestPainROMI Stated Complaint: CHEST PAIN AND SOB PER PT Time Seen by Provider: 12/03/19 10:10 Hx Obtained From: Patient Onset/Duration: Started Hours Ago Timing: Constant Initial Severity: Moderate Current Severity: Mild Pain Intensity: 0 Pain Scale Used: 0-10 Numeric Chest Pain Location: Left Anterior Chest Pain Radiates: No Aggravating Factor(s): Nothing Alleviating Factor(s): Rest Associated Signs and Symptoms: Positive: Chest Pain, Cough, Productive Cough. Negative: Vision Changes, Anxiety, Recent Stress - Allergy/Home Medications Allergies/Adverse Reactions: Allergies Allergy/AdvReac Type Severity Reaction Status Date / Time No Known Allergies Allergy Verified 12/03/19 10:10 Home Medications: Home Medications Multivitamin [Multivitamins] 1 cap PO DAILY 11/05/13 [History Confirmed 12/03/19 ] Allopurinol TAB* [Zyloprim 100 MG TAB*] 100 mg PO DAILY 12/03/19 [History Confirmed 12/03/19] Apixaban* [Eliquis*] 2.5 mg PO BID 12/03/19 [History Confirmed 12/03/19] Levofloxacin TAB* [Levaquin TAB*] 500 mg PO DAILY #5 tab 12/03/19 [Rx] Simvastatin (NF) [Zocor (NF)] 40 mg PO DAILY 12/03/19 [History Confirmed ] amLODIPine TAB* [Norvasc 5 mg TAB*] 5 mg PO DAILY 12/03/19 [History Confirmed ] glipiZIDE TAB* [Glucotrol TAB*] 5 mg PO DAILY 12/03/19 [History Confirmed ] PMH/Surg Hx/FS Hx/Imm Hx Previously Healthy: Yes Endocrine/Hematology History: Reports: Hx Diabetes - pt states he has "borderline diabetes" Cardiovascular History: Reports: Hx Hypercholesterolemia, Hx Hypertension - CONTROL WITH MED, Other Cardiovascular Problems/Disorders - carotid arteries partially occluded. 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 BASAL CELL REMOVED FROM BACK X 2, [facility]. TONSILLECTOMY A CHILD. PIECES OF STEEL REMOVED FROM EYE YEARS, AGO, OFFICE. CATARACT SURGERY B/L EYE October and November 2013 Hx Anesthesia Reactions: No - Immunization History Date of Tetanus Vaccine: Unknown Date of Influenza Vaccine: Up to date Hx Pertussis Vaccination: No Immunizations Up to Date: Yes Infectious Disease History: No Infectious Disease History: Denies: Traveled Outside the [place] in Last 30 Days - Social History Occupation: Unemployed Lives: With Family Alcohol Use: Occasionally Hx Substance Use: No Substance Use Type: Reports: None Smoking Status (MU): Former Smoker Review of Systems Negative: Fever, Chills, Fatigue, Skin Diaphoresis Positive: Chest Pain. Negative: Palpitations Positive: Cough. Negative: Shortness Of Breath Genitourinary: Negative Positive: no symptoms reported, see HPI Negative: Arthralgia, Myalgia Skin: Negative Neurological/Mental Status: Negative All Other Systems Reviewed And Are Negative: Yes Physical Exam Triage Information Reviewed: Yes Vital Signs On Initial Exam: Initial Vitals Temp Pulse Resp BP Pulse Ox 97.8 F 70 16 154/57 100 12/03/19 09:50 12/03/19 09:50 12/03/19 09:50 12/03/19 09:50 12/03/19 09:50 Vital Signs Reviewed: Yes Appearance: Positive: Well-Appearing, Well-Nourished Skin: Positive: Warm, Skin Color Reflects Adequate Perfusion Eyes: Positive: EOMI, MALENA, Conjunctiva Clear Neck: Positive: Supple, No Lymphadenopathy Respiratory/Lung Sounds: Positive: Rhonchi - right upper Cardiovascular: Positive: RRR, Pulses are Symmetrical in both Upper and Lower Extremities Musculoskeletal: Positive: Normal, Strength/ROM Intact Neurological: Positive: Speech Normal Psychiatric: Positive: Normal, Affect/Mood Appropriate AVPU Assessment: Alert Procedures - Sedation Patient Received Moderate/Deep Sedation with Procedure: No Diagnostics - Vital Signs Vital Signs Temp Pulse Resp BP Pulse Ox 12/03/19 14:23 96.6 F 58 15 140/83 92 12/03/19 09:50 97.8 F 70 16 154/57 100 - Laboratory Lab Results: Lab Results 12/03/19 12/03/19 12/03/19 Range/Units 10:01 10:01 10:01 WBC 7.4 (3.5-10.8) 10^3/uL RBC 4.97 (4.18-5.48) 10^6 /uL Hgb 13.5 L (14.0-18.0) g/dL Hct 40 L (42-52) % MCV 81 (80-94) fL MCH 27 (27-31) pg MCHC 34 (31-36) g/dL RDW 16 H (10-15) % Plt Count 306 (150-450) 10^3/uL MPV 6.6 L (7.4-10.4) fL Neut % (Auto) 68.6 % Lymph % (Auto) 20.8 % [place] % (Auto) 7.2 % Eos % (Auto) 1.9 % Baso % (Auto) 1.5 % Absolute Neuts (auto) 5.1 (1.5-7.7) 10^3/ul Absolute Lymphs (auto) 1.5 (1.0-4.8) 10^3/ul Absolute Monos (auto) 0.5 (0-0.8) 10^3/ul Absolute Eos (auto) 0.1 (0-0.6) 10^3/ul Absolute Basos (auto) 0.1 (0-0.2) 10^3/ul Absolute Nucleated RBC 0.0 10^3/ul Nucleated RBC % 0.0 INR (Anticoag Therapy) 1.28 H (0.82-1.09) Sodium 134 L (135-145) mmol/L Potassium 4.4 (3.5-5.0) mmol/L Chloride 100 L (101-111) mmol/L Carbon Dioxide 25 (22-32) mmol/L Anion Gap 9 (2-11) mmol/L BUN 20 (6-24) mg/dL Creatinine 1.10 (0.67-1.17) mg/dL Est GFR ( Amer) 77.4 (>60) Est GFR (Non-Af Amer) 63.9 (>60) BUN/Creatinine Ratio 18.2 (8-20) Glucose 146 H (70-100) mg/dL Calcium 9.5 (8.6-10.3) mg/dL Magnesium 1.7 L (1.9-2.7) mg/dL Total Bilirubin 0.50 (0.2-1.0) mg/dL AST 13 (13-39) U/L ALT 9 (7-52) U/L Alkaline Phosphatase 105 H (34-104) U/L Troponin I 0.01 (<0.03) ng/mL B-Natriuretic Peptide (<=100) pg/mL Total Protein 8.1 (6.4-8.9) g/dL Albumin 3.6 (3.2-5.2) g/dL Globulin 4.5 H (2-4) g/dL Albumin/Globulin Ratio 0.8 L (1-3) 12/03/19 12/03/19 Range/Units 10:01 13:14 WBC (3.5-10.8) 10^3/uL RBC (4.18-5.48) 10^6 /uL Hgb (14.0-18.0) g/dL Hct (42-52) % MCV (80-94) fL MCH (27-31) pg MCHC (31-36) g/dL RDW (10-15) % Plt Count (150-450) 10^3/uL MPV (7.4-10.4) fL Neut % (Auto) % Lymph % (Auto) % [place] % (Auto) % Eos % (Auto) % Baso % (Auto) % Absolute Neuts (auto) (1.5-7.7) 10^3/ul Absolute Lymphs (auto) (1.0-4.8) 10^3/ul Absolute Monos (auto) (0-0.8) 10^3/ul Absolute Eos (auto) (0-0.6) 10^3/ul Absolute Basos (auto) (0-0.2) 10^3/ul Absolute Nucleated RBC 10^3/ul Nucleated RBC % INR (Anticoag Therapy) (0.82-1.09) Sodium (135-145) mmol/L Potassium (3.5-5.0) mmol/L Chloride (101-111) mmol/L Carbon Dioxide (22-32) mmol/L Anion Gap (2-11) mmol/L BUN (6-24) mg/dL Creatinine (0.67-1.17) mg/dL Est GFR ( Amer) (>60) Est GFR (Non-Af Amer) (>60) BUN/Creatinine Ratio (8-20) Glucose (70-100) mg/dL Calcium (8.6-10.3) mg/dL Magnesium (1.9-2.7) mg/dL Total Bilirubin (0.2-1.0) mg/dL AST (13-39) U/L ALT (7-52) U/L Alkaline Phosphatase (34-104) U/L Troponin I 0.01 (<0.03) ng/mL B-Natriuretic Peptide 87 (<=100) pg/mL Total Protein (6.4-8.9) g/dL Albumin (3.2-5.2) g/dL Globulin (2-4) g/dL Albumin/Globulin Ratio (1-3) Result Diagrams: 12/03/19 10:01 12/03/19 10:01 Lab Statement: Any lab studies that have been ordered have been reviewed, and results considered in the medical decision making process. Disposition - Course Course Of Treatment: Pt appears well, although has a cough no production noted. Afebrile. VS stable. A chest x-ray was obtained which shows a right upper lobe mass. Labs obtained which are WNL including a troponin of 0.01. EKG shows normal sinus rhythm. No evidence of A. fib at this time. Requested records from PCP office. Unable to obtain at the time, so a CT with IV contrast was obtained. This shows: IMPRESSION: 1. 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 NEOPLASM. THERE IS OBSTRUCTION OF THE RIGHT UPPER LOBE BRONCHUS WITH ASSOCIATED. POSTOBSTRUCTIVE CONSOLIDATION OF THE RIGHT UPPER LOBE. THERE IS RIGHT MEDIASTINAL. LYMPHADENOPATHY. 2. RECOMMEND CONSIDERATION OF FURTHER EVALUATION WITH TISSUE SAMPLING. Discussed findings with patient. Unsure if pt has a underlying PNA. With worsening cough hx, will treat with abx. Discussed with Dr. Fontaine at [place]. Pt will be placed on abx, has f/u with CT surgery on 12/06 and lining sewer on 12/07. Will be prescribed Levaquin. - Differential Dx - Cardiopulmonary Differential Diagnoses - Cardiopulmonary: Other - PNA, cough, angina, pain with coughing - Diagnoses Provider Diagnoses: Lung mass - Physician Notifications Discussed Care Of Patient With: Debbie Fontaine Discharge ED - Sign-Out/Discharge Documenting (check all that apply): Patient Departure - Discharge Plan Condition: Stable Disposition: HOME Prescriptions: Levofloxacin TAB* [Levaquin TAB*] 500 mg PO DAILY #5 tab Patient Education Materials: Pneumonia (ED) Referrals: Emily Pineda MD [Primary Care Provider] - Additional Instructions: We are treating you for a possible underlying pneumonia Please follow up with Dr. Bone office Please keep all your appts as scheduled - however return to the ED if you develop any shortness of breath Continue your mucinex - Billing Disposition and Condition Condition: STABLE Disposition: Home
== END 2019-12-03 14:23 | disposition home or self-care (01) ==
LOC: ED 09:50
DX: R91.8 Other nonspecific abnormal finding of lung field (principal); I10 Essential (primary) hypertension; E78.00 Pure hypercholesterolemia, unspecified; R73.03 Prediabetes; Z85.828 Personal history of other malignant neoplasm of skin; Z87.891 Personal history of nicotine dependence; Z79.01 Long term (current) use of anticoagulants; Z79.84 Long term (current) use of oral hypoglycemic drugs; Z79.899 Other long term (current) drug therapy
CPT/HCPCS: 36415; 71046; 71260; 80053; 83735; 83880; 84484; 85025; 85610; 93005; 99283; Q9967

== ENCOUNTER 2019-12-20 19:26 | Inpatient (IN) | payer MEDICARE ==
--- OUTSIDE RECORDS SUMMARY | 2019-12-20 19:35 | XMS REPORT | Summary of Care ---
:1935 Author Organization [facility] Address [address] [place] [address] Care Team Providers Name Role Phone Emily Pineda Primary Care Provider Reason for Visit Reason Comments New Patient Mass right lung Results CT Refer to Department Only (Routine) Status Reason Specialty Diagnoses / Referred By Referred To Procedures Contact Contact Closed PULMONARY / Diagnoses Mass of right lung Steph Pineda MD [address] [place] [address] Encounter Details Date Type Department Care Team Description 12/07/2019 Office Visit [facility] Evon Reed MD Mass of right lung [address] (Primary Dx) [place] [id number] [place] [address] Allergies No Known Allergiesdocumented as of this encounter (statuses as of 12/07/2019) Medications Medication Sig Dispensed Refills Start Date End Date Status Multiple Vitamin (MULTI Take by mouth. 0 Active VITAMIN DAILY PO) Colchicine 0.6 MG Oral Take 0.6 mg by 10 Cap 2 05/22/2017 Active Cap mouth TWICE DAILY. Additional Information Patient taking differently: 0.6 mg Oral PRN, Reported on 07/23/2017 10:04 AM amLodipine (NORVASC) TAKE ONE TABLET 90 Tab 1 06/07/2019 Active 5 MG Oral Tab BY MOUTH EVERY DAY ELIQUIS 2.5 MG Oral TAKE ONE TABLET 180 Tab 1 06/07/2019 Active Tab BY MOUTH TWICE A DAY ACCU-CHEK ARTURO PLUS USE TO TEST 100 Strip 5 06/28/2019 Active In Vitro TWICE A DAY StripIndications: DIRECTED Type 2 diabetes mellitus without complication, without long-term current use of insulin (HCC) simvastatin (ZOCOR) TAKE ONE TABLET 90 Tab 1 07/26/2019 Active 40 MG Oral Tab BY MOUTH EVERY DAY glipiZIDE TAKE ONE TABLET 90 Tab 1 07/26/2019 Active (GLUCOTROL) 5 MG BY MOUTH EVERY Oral Tab DAY allopurinol TAKE ONE TABLET 90 Tab 1 08/12/2019 Active (ZYLOPRIM) 100 MG BY MOUTH EVERY Oral Tab DAY Lancets Does not 1 Each by Does 100 Each 5 09/01/2019 Active apply not apply route MiscIndications: TWICE DAILY. Type 2 diabetes Brand:insurance mellitus without preferred complication, non-Insulin without long-term dependent Test current use of Blood Glucose 2 insulin (HCC) time(s) A DAY Blood Glucose 1 Device by Does 1 Device 0 10/12/2019 Active Monitor Software not apply route Does not apply DIRECTED. Device E11,9 diabetes. Brand: Insurance preferred Glucose Blood In 1 Strip by In 100 Each 1 10/12/2019 Active Vitro Strip Vitro route TWO TIMES DAILY BEFORE MEALS. E11.9 insurance preferred Lancets Does not 1 Each by Does 100 Each 1 10/12/2019 Active apply Misc not apply route TWICE DAILY. Brand: insurance preferred Dx: E11.9 Test Blood Glucose BID time(s) A DAY fluticasone Esbon 2 Sprays 16 g 0 11/16/2019 Active (FLONASE) 50 MCG/ACT in nose DAILY. Nasal Suspension guaifenesin Take 1 Tab by 60 Tab 1 11/16/2019 Active (MUCINEX) 600 MG mouth TWICE Oral TABLET SR 12 HR DAILY. levofloxacin 0 12/03/2019 Discontinued (LEVAQUIN) 500 MG 020 (Therapy Completed) Oral Tab documented as of this encounter (statuses as of 12/07/2019) Active Problems Problem Noted Date Mass of right lung 12/06/2019 Mediastinal lymphadenopathy 12/06/[address] of the chest 12/06/2019 Uncontrolled type 2 diabetes mellitus with complication, [...] as of this encounter (statuses as of 12/07/2019) Resolved Problems Problem Noted Date Resolved Date Atrial fibrillation 12/26/2014 12/26/2014 Hypertension 12/24/1999 05/16/2014 Arthritis 12/24/1999 11/04/2013 documented as of this encounter (statuses as of 12/07/2019) Immunizations Name Administration Dates Next Due Influenza [...] Sign Reading Time Taken Comments Blood Pressure 138/72 12/07/2019 9:06 AM EST Pulse 82 12/07/2019 9:06 AM EST Temperature 36.3 12/07/2019 9:06 AM EST C (97.3 F) Respiratory Rate - - Oxygen Saturation 94% 12/07/2019 9:06 AM EST Ra Inhaled Oxygen Concentration - - Weight 83.5 kg (184 lb) 12/07/2019 9:06 AM EST Height 170.2 cm (5' 7") 12/07/2019 9:06 AM EST Body Mass Index 28.82 12/07/2019 9:06 AM EST documented in this encounter Patient Instructions Patient InstructionsEvon Reed MD - 12/07/2019 10:00 AM EST Bronchoscopy on Friday12/15/2019 Arrive by 1 pm Procedure is at 2 pm Estimated discharge time is 4- 5 pm Light breakfast by 6 am. Nothing to eat or drink afterward 6 am. Medication instruction: Current Outpatient Medications Last dose before procedure Medication ? allopurinol (ZYLOPRIM) 100 MG Oral Tab: Friday ? amLodipine (NORVASC) 5 MG Oral Tab: Friday ? Colchicine 0.6 MG Oral Cap: Friday ? ELIQUIS 2.5 MG Oral Tab: Friday ? glipiZIDE (GLUCOTROL) 5 MG Oral Tab Friday am ? guaifenesin (MUCINEX) 600 MG Oral TABLET SR 12 HR Friday am ? Multiple Vitamin (MULTI VITAMIN DAILY PO) Friday ? simvastatin (ZOCOR) 40 MG Oral Tab Friday pm documented in this encounter Progress Notes Evon Reed MD - 12/07/2019 10:00 AM EST PATIENT: Armen Gonzalez : 1935 DATE OF SERVICE: 12/07/2019 CHIEF COMPLAINT: Chief Complaint Patient presents with ? New Patient ? Mass right lung ? Results CT Subjective HISTORY OF PRESENT ILLNESS: Armen Gonzalez is a 84-y.o. male who was referred by Emily Pineda MD for evaluation of a lung mass. He is accompanied today by his who also help provide some historical information. It appeared that he he had not been doing well since early last year but had not sought medical attention. His symptoms at that time were cough and fatigue. It was only earlier this year when he saw his primary care doctor with complaints of about a 2-month history of a productive cough. Sputum wasbrown at that time and he had noted some wheezing. He was treated with Augmentin and subsequently levofloxacin. There was some improvement in his cough and the sputum was less discolored. He denies hemoptysis. He has no shortness of breath or wheezing currently. No orthopnea paroxysmal nocturnal dyspnea. He has occasional left chest pain on coughing and deep inspiration. No leg edema. No fever, chills or sweats. Chest x-ray showed a right lung mass. This prompted a chest CT to be done and today's consultation. He is a former smoker with an approximate [id number] history of tobacco use. Past medical history significant for atrial fibrillation (on apixaban), chronic kidney disease stageIII, cerebrovascular accident in 1999 and carotid stenosis ( 50- 69% bilateral stenosis). Past Medical History: Diagnosis Date ? Atrial fibrillation ([facility]) ? Carotid stenosis ? CKD (chronic kidney disease) stage 3, GFR 30-59 ml/min ([facility]) ? CVA (cerebral vascular accident) ([facility]) 09/20/2000 ? HTN (hypertension) ? Hyperlipemia ? Sleep apnea uses CPAP Family History Problem Relation Age of Onset ? Diabetes Brother ? Stroke Brother ? Heart Son 49 [place] ? Diabetes Sister ? Hypertension Sister ? Heart Sister ? Kidney Disease Sister Current Outpatient Medications Medication Sig ? ACCU-CHEK ARTURO PLUS In Vitro Strip USE TO TEST TWICE A DAY DIRECTED ? allopurinol (ZYLOPRIM) 100 MG Oral Tab TAKE ONE TABLET BY MOUTH EVERY DAY ? amLodipine (NORVASC) 5 MG Oral Tab TAKE ONE TABLET BY MOUTH EVERY DAY ? Blood Glucose Monitor Software Does not apply Device 1 Device by Does not apply route DIRECTED. E11,9 diabetes. Brand: Insurance preferred ? Colchicine 0.6 MG Oral Cap Take 0.6 mg by mouth TWICE DAILY. (Patient taking differently: Take 0.6 mg by mouth NEEDED.) ? ELIQUIS 2.5 MG Oral Tab TAKE ONE TABLET BY MOUTH TWICE A DAY ? fluticasone (FLONASE) 50 MCG/ACT Nasal Suspension Esbon 2 Sprays in nose DAILY. ? glipiZIDE (GLUCOTROL) 5 MG Oral Tab TAKE ONE TABLET BY MOUTH EVERY DAY ? Glucose Blood In Vitro Strip 1 Strip by In Vitro route TWO TIMES DAILY BEFORE MEALS. E11.9 insurance preferred ? guaifenesin (MUCINEX) 600 MG Oral TABLET SR 12 HR Take 1 Tab by mouth TWICE DAILY. ? Lancets Does not apply Misc 1 Each by Does not apply route TWICE DAILY. Brand:insurance preferred non-Insulin dependent Test Blood Glucose 2 time(s) A DAY ? Lancets Does not apply Misc 1 Each by Does not apply route TWICE DAILY. Brand: insurance preferred Dx: E11.9 Test Blood Glucose BID time(s) A DAY ? Multiple Vitamin (MULTI VITAMIN DAILY PO) Take by mouth. ? simvastatin (ZOCOR) 40 MG Oral Tab TAKE ONE TABLET BY MOUTH EVERY DAY No current facility-administered medications for this visit. No Known Allergies Social History Tobacco Use ? Smoking status: Former Smoker Packs/day: 1.50 Years: 25.00 Pack years: 37.50 Types: Cigarettes Last attempt to quit: 09/21/2000 Years since quittin.2 ? Smokeless tobacco: Never Used Substance Use Topics ? Alcohol use: Yes Comment: rarely REVIEW OF SYSTEMS: Review of systems is otherwise negative. Objective PHYSICAL EXAM: VITALS: Pulse 82 | Temp 97.3 F (36.3 C) (Temporal) | Ht 5' 7" (1.702 m) | Wt 184 lb (83.5 kg) | SpO2 94% Comment: Ra | BMI 28.82 kg/m Body mass index is 28.82 kg/m. Physical Exam Constitutional: No acute cardiac or pulmonary distress. HEENT: Unremarkable Neck: Full range of motion. No jugular venous distention. Respiratory: Normal breath sounds. No rales, rhonchi or rubs. Cardiovascular: Irreg rhythm. Normal heart sounds. No murmurs gallops or rubs Abdomen: Soft and nontender. Normal bowel sounds. Extremities: No edema, cyanosis or clubbing. Neuro/psychiatric examination: Alert and oriented with normal mood and affect. Chest CT 09/01/2020: Large right upper lobe lung mass with possible central necrosis. There may be some associated atelectasis. Right paratracheal and subcarinal adenopathy. ASSESSMENT / PLAN ICD-9-CM ICD-10-CM 1. Mass of right lung 786.6 R91.8 REFER TO PULMONARY Findings discussed with the patient. I expressed some concern that this may represent a malignancy. I recommend bronchoscopy with EBUS TBNA to the enlarged lymph nodes: Right paratracheal (2R), subcarinal (7),. There may be some additional more distal adenopathy may not require sampling if the hilarlymph nodes are positive. Given the architecture of the right upper lobe mass on CT scan there may be an endobronchial component which may be biopsied. All the patient's and 's questions were answered. They agreed to proceeding as outlined. Patient Instructions Bronchoscopy on Friday12/15/2019 Arrive by 1 pm Procedure is at 2 pm Estimated discharge time is 4- 5 pm Light breakfast by 6 am. Nothing to eat or drink afterward 6 am. Medication instruction: Current Outpatient Medications Last dose before procedure Medication ? allopurinol (ZYLOPRIM) 100 MG Oral Tab: Friday ? amLodipine (NORVASC) 5 MG Oral Tab: Friday ? Colchicine 0.6 MG Oral Cap: Friday ? ELIQUIS 2.5 MG Oral Tab: Friday ? glipiZIDE (GLUCOTROL) 5 MG Oral Tab Friday ? guaifenesin (MUCINEX) 600 MG Oral TABLET SR 12 HR Friday am ? Multiple Vitamin (MULTI VITAMIN DAILY PO) Friday ? simvastatin (ZOCOR) 40 MG Oral Tab Friday Author: Evon Reed MD 12/07/2019 09:07 documented in this encounter Plan of Treatment Date Type Specialty Care Team Description 12/15/2019 [facility] Evon Reed MD [address] [place] [address] [phone] 02/15/2020 Lab Internal Medicine 08/09/2020 Ancillary Procedure Radiology 08/09/2020 Office Visit [facility] Brittny Duque FNP [address] [place] [address] [phone] Name Type Priority Associated Diagnoses Order Schedule XR FLUORO FOR BRONCHOSCOPY Imaging Routine Mass of right lung Expected: , Expires: 12/06/2020 Health Maintenance Due Date Last Done Comments [...] Problems Progress Blood Pressure Blood Pressure Essential 138/72 No [place], < 140/90 hypertension, (12/07/2019 Emily, benign 9:06 AM EST) Note: Hypertension Care Plan Based [...] Educational Resources. record my blood pressure results. [address] is safe and secure way for you [...] Educational Resources: National Heart, Lung, & Blood [place] http://nhlbi.nih.gov/hbp/index.html The DASH Diet Eating Plan http://www.nhlbi.nih.gov/health/health-topics/ topics/dash/ Academy of Nutrition & DIetetics http://eatright.org National Smoking Cessation Site http://smokefree.gov Blood Pressure < Blood Pressure 138/72 (12/07/2019 No Emily Pineda, 150/90 9:06 AM EST) Note: This is an individualized [...] my blood sugar results (including dextrose sticks). [facility] is safe and secure way for [...] A1c < 8.0 Diabetes 8.3 (11/08/2019 8:48 Emily Robison, AM EST) Note: This is an individualized treatment (diabetes [...] Summaries. Weight loss vs. 18 mo Lifestyle 11.4 (12/07/2019 9:06 AM No Emily Pineda MD max (lbs) [...] goal. Take all prescribed medications as Self-management Emily Robison MD directed Note: This is an individualized [...] Address Type Group MEDICARE MEDICARE PART A [id number] 2001-Present Medicare & B [facility] [id number] 2016-Present [facility] [employer] Guarantor Name Account Type Relation to Date of Phone Billing Address Patient Armen Gonzalez Personal/Famil 1935 [id number] (Home) [facility] [phone] [place], [place] (Work) [id number] documented as of this encounter
--- OUTSIDE RECORDS SUMMARY | 2019-12-20 19:35 | XMS REPORT | Summary of Care ---
:1935 Author Organization [facility] Address [address] [facility] [place] [place] [address] Care Team Providers Name Role Phone Emily Pineda Primary Care Provider Reason for Visit Reason Comments New Patient referred for right lung mass Refer to Department Only (Routine) Status Reason Specialty Diagnoses / Referred By Referred To Procedures Contact Contact Closed CARDIAC SURGERY / Diagnoses Mass of right lung Miriam, Cardiac Surgery MD [address] [place] [address] Encounter Details Date Type Department Care Team Description 12/06/2019 Office Visit [facility], Mass of right lung (Primary Dx); Surgery MD Nasim Mediastinal lymphadenopathy; [address] [facility] [place] [address] [place] [address] [phone] Allergies No Known Allergiesdocumented as of this encounter (statuses as of 12/06/2019) Medications Medication Sig Dispensed Refills Start Date [...] BID time(s) A DAY fluticasone (FLONASE) 50 [place] 2 Sprays in nose 16 g 0 11/16/2019 Active MCG/ACT Nasal Suspension DAILY. guaifenesin (MUCINEX) 600 MG Take 1 Tab by mouth TWICE 60 Tab 1 11/16/2019 Active Oral TABLET SR 12 HR DAILY. levofloxacin (LEVAQUIN) 500 0 12/03/2019 Active MG Oral Tab documented as of this encounter (statuses as of 12/06/2019) Active Problems Problem Noted Date Mass of [...] as of this encounter (statuses as of 12/06/2019) Resolved Problems Problem Noted Date Resolved Date Atrial fibrillation 12/26/2014 12/26/2014 Hypertension 12/24/1999 05/16/2014 Arthritis 12/24/1999 11/04/2013 documented as of this encounter (statuses as of 12/06/2019) Immunizations Name Administration Dates Next Due Influenza [...] Sign Reading Time Taken Comments Blood Pressure 122/70 12/06/2019 2:20 PM EST Pulse 76 12/06/2019 2:20 PM EST Temperature - - Respiratory Rate 16 12/06/2019 2:20 PM EST Oxygen Saturation 95% 12/06/2019 2:20 PM EST Inhaled Oxygen Concentration - - Weight 84.4 kg (186 lb) 12/06/2019 2:20 PM EST Height 170.2 cm (5' 7") 12/06/2019 2:20 PM EST Body Mass Index 29.13 12/06/2019 2:20 PM EST documented in this encounter Progress Notes Nasim Jackson MD - 12/06/2019 3:30 PM EST PATIENT: Armen Gonzalez : 1935 DATE OF SERVICE: 12/06/2019 CHIEF COMPLAINT: Chief Complaint Patient presents with ? New Patient referred for right lung mass Subjective HISTORY OF PRESENT ILLNESS: Armen Gonzalez is a 84-y.o. male. HPI Patient presents to the office, accompanied by his , for discussion of his abnormal chest CT. Patient is an 84-year-old white male, former smoker with sleep apnea and atrial fibrillation who was found to have abnormal chest imaging. Patient states he was having worsening cough and feeling of pneumonia near the end of September which is initially was treated with antibiotics with slight improvement but had a persistent productive cough prompting a chest x- ray on 11/15/2019. This showed a large mass in the right chest leading to a chest CT on 11/23/2019. The CT showed the large, well-defined airspace consolidation in the right upper lung measuring 10.3 x 6.2 x 10.6 cm as well as enlarged thoracic lymph nodes. These findings are concerning for a central neoplasm with postobstructive pneumonia.The patient states his symptoms have improved since the antibiotics but he still has some occasionalpain with coughing and deep breathing, but only on the left. He does not have any superficial pain or chest wall pain on the right, and no evidence of neurologic issues with the right upper extremity. The patient states that his cough is nearly completely resolved, and he does not have any significant shortness of breath or fevers and chills. The did add that they do not regularly clean the CPAP machine that he uses at night. Past Medical History: Diagnosis Date ? Atrial fibrillation (HCC) ? Carotid stenosis ? CKD (chronic kidney disease) stage 3, GFR 30-59 ml/min ([facility]LY [facility]) ? CVA (cerebral vascular accident) (FORMERLY [facility]) 09/20/2000 ? HTN (hypertension) ? Hyperlipemia ? [...] ? fluticasone (FLONASE) 50 MCG/ACT Nasal Suspension Kerby 2 Sprays in nose DAILY. ? glipiZIDE [...] Blood Glucose BID time(s) A DAY ? levofloxacin (LEVAQUIN) 500 MG Oral Tab ? Multiple Vitamin (MULTI VITAMIN DAILY PO) Take by mouth. ? simvastatin (ZOCOR) 40 MG Oral Tab TAKE ONE TABLET BY MOUTH EVERY DAY No current facility-administered medications for this visit. No Known Allergies Social History Socioeconomic History ? Marital status: Spouse name: Not on file ? Number of children: Not on file ? Years of education: Not on file ? Highest education level: Not on file Occupational History ? Not on file Social Needs ? Financial resource strain: Not on file ? Food insecurity Worry: Not on file Inability: Not on file ? Transportation needs Medical: Not on file Non-medical: Not on file Tobacco Use ? Smoking status: Former Smoker Packs/day: 1.50 Years: 25.00 Pack years: 37.50 Types: Cigarettes Last attempt to quit: 09/21/2000 Years since quittin.2 ? Smokeless tobacco: Never Used Substance and Sexual Activity ? Alcohol use: Yes Comment: rarely ? Drug use: No ? Sexual activity: Not on file Lifestyle ? Physical activity Days per week: Not on file Minutes per session: Not on file ? Stress: Not on file Relationships ? Social connections Talks on phone: Not on file Gets together: Not on file Attends taoist service: Not on file Active member of club or organization: Not on file Attends meetings of clubs or organizations: Not on file Relationship status: Not on file ? Intimate partner violence Fear of current or ex partner: Not on file Emotionally abused: Not on file Physically abused: Not on file Forced sexual activity: Not on file Other Topics Concern ? Back Care Not Asked ? Bike Helmet Not Asked ? Blood Transfusions Not Asked ? Caffeine Concern Yes Comment: 4 cups coffee daily ? Exercise Not Asked ? Hobby Hazards Not Asked ? International Travel Not Asked ? Service Not Asked ? Occupational Exposure Not Asked ? Seat Belt Not Asked ? Self-Exams Not Asked ? Sleep Concern Not Asked ? Special Diet Not Asked ? Stress Concern Not Asked ? 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 REVIEW OF SYSTEMS: Review of Systems Constitutional: Negative for chills, fever, malaise/fatigue and weight loss. HENT: Negative for congestion and sore throat. Eyes: Negative for blurred vision. Respiratory: Positive for cough, hemoptysis (Very minimal) and sputum production. Negative for shortness of breath, wheezing and stridor. Cardiovascular: Positive for chest pain (Left-sided) and palpitations (History of atrial fibrillation). Negative for orthopnea and claudication. Gastrointestinal: Negative for abdominal pain, nausea and vomiting. Musculoskeletal: Negative for back pain, falls and myalgias. Skin: Negative for rash. Neurological: Negative for dizziness, sensory change and headaches. Endo/Heme/Allergies: Bruises/bleeds easily (He does take Eliquis for atrial fibrillation). Psychiatric/Behavioral: Negative for depression, hallucinations, substance abuse and suicidal ideas.The patient is not nervous/anxious. Objective PHYSICAL EXAM: VITALS: BP 122/70 (BP Location: Right arm, Patient Position: Sitting) | Pulse 76 | Resp 16 | Ht 5' 7" (1.702 m) | Wt 186 lb (84.4 kg) | SpO2 95% | BMI 29.13 kg/m Body mass index is 29.13 kg/m. Physical Exam Vitals signs reviewed. Constitutional: General: He is awake. Appearance: Normal appearance. He is normal weight. He is not ill-appearing, toxic-appearing or diaphoretic. HENT: Head: Normocephalic and atraumatic. Nose: Nose normal. Mouth/Throat: Mouth: Mucous membranes are moist. Eyes: Extraocular Movements: Extraocular movements intact. Pupils: Pupils are equal, round, and reactive to light. Neck: Musculoskeletal: No neck rigidity. Cardiovascular: Rate and Rhythm: Rhythm irregularly irregular. Pulmonary: Effort: Pulmonary effort is normal. No accessory muscle usage or retractions. Breath sounds: No decreased breath sounds, wheezing or rhonchi. Chest: Chest wall: No mass, swelling or tenderness. There is no dullness to percussion. Abdominal: General: There is no distension. Palpations: Abdomen is soft. Tenderness: There is no abdominal tenderness. Musculoskeletal: Normal range of motion. Lymphadenopathy: Cervical: No cervical adenopathy. Skin: General: Skin is warm and dry. Neurological: General: No focal deficit present. Mental Status: He is alert and oriented to person, place, and time. Mental status is at baseline. Cranial Nerves: No cranial nerve deficit. Psychiatric: Mood and Affect: Mood normal. Behavior: Behavior normal. Behavior is cooperative. Thought Content: Thought content normal. Judgment: Judgment normal. ASSESSMENT / IMPRESSION: ICD-9-CM ICD-10-CM 1. Mass of right lung 786.6 R91.8 REFER TO CARDIO / THORACIC SURGERY 2. Mediastinal lymphadenopathy 785.[address] of the chest 793.2 R93.89 Patient is an 84-year-old with a large consolidation in the right upper lobe that is likely from a proximal lung mass, but no diagnosis has been made as of yet. He currently has minimal symptoms, and no evidence of chest wall invasion on the right. There is a mediastinal shift to the right leading me to believe this has an infectious component, and it is not all associated with a lung mass. Plan He has an appointment to see pulmonology tomorrow, and after a discussion with the patient and his , I explained that a test like bronchoscopy and endobronchial ultrasound for biopsies would be thebest first step. It would likely make a cancer diagnosis if it is there, and cultures can be taken for better antibiotic coverage. A PET scan may not show differentiation between infection and mass very well. I will continue to monitor the progression, but would agree that the next steps would be done with pulmonology. Author: Nasim Jackson MD 12/06/2019 17:04 documented in this encounter Plan of Treatment Date Type Specialty Care Team Description 12/07/2019 Office Visit Pulmonary Evon Reed MD [address] [address] 02/15/2020 Lab Internal Medicine 08/09/2020 Ancillary Procedure Radiology 08/09/2020 Office Visit Vascular Surgery Brittny Duque, CERTIFIED [employer]PORATE TRAVEL EXECUTIVE [address] [address] Health Maintenance Due Date Last Done Comments [...] Problems Progress Blood Pressure Blood Pressure Essential 122/70 No Miriam, < 140/90 hypertension, (12/06/2019 Emily, benign 2:20 PM EST) Note: Hypertension Care Plan Based on [...] Educational Resources. record my blood pressure results. eRji is safe and secure way for you [...] Educational Resources: National Heart, Lung, & Blood Spiro http://nhlbi.nih.gov/hbp/index.html The DASH Diet Eating Plan http://www.nhlbi.nih.gov/health/health-topics/ topics/dash/ Academy of Nutrition & DIetetics http://eatright.org National Smoking Cessation Site http://smokefree.gov Blood Pressure < Blood Pressure 122/70 (12/06/2019 No Emily Pineda, 150/90 2:20 PM EST) Note: This is an individualized treatment [...] my blood sugar results (including dextrose sticks). [facility] is safe and secure way for you [...] Summaries. Weight loss vs. 18 mo Lifestyle 9.4 (12/06/2019 2:20 PM No Emily Pineda MD max (lbs) >= [...] Visit Diagnoses Diagnosis Mass of right lung Mediastinal lymphadenopathy Enlargement of lymph nodes Abnormal CT of the chest Nonspecific (abnormal) findings on radiological and other examination of other intrathoracic organs documented in this encounter Insurance Payer Benefit Plan / Subscriber ID Effective Dates Phone Address Type Group MEDICARE MEDICARE PART A [id number] 2001-Present Medicare & B [facility] [id number] 2016-Present [facility] OPT[employer] Guarantor Name Account Type Relation to Date of Phone Billing Address Patient Armen Gonzalez Personal/Famil 1935 [id number] (Home) [facility] [phone] [place], [place] (Work) [phone] documented as of this encounter
--- OUTSIDE RECORDS SUMMARY | 2019-12-20 19:35 | XMS REPORT | Summary of Care ---
:1935 Author Organization [facility] Address 1 [facility] [place] [address] Care Team Providers Name Role Phone Emily Pineda Primary Care Provider Encounter Details Date Type Department Care Team Description 12/15/2019 Hospital Encounter [facility] Bronchoscopy Suite Evon Reed MD Short Procedure [address] [facility] [place] [address] [place] [address] [phone] Allergies No Known Allergiesdocumented as of this encounter (statuses as of 12/16/2019) Medications Medication Sig Dispensed Refills Start Date [...] BID time(s) A DAY fluticasone (FLONASE) 50 [place] 2 Sprays in nose 16 g 0 11/16/2019 Active MCG/ACT Nasal Suspension DAILY. guaifenesin (MUCINEX) 600 MG Take 1 Tab by mouth TWICE 60 Tab 1 11/16/2019 Active Oral TABLET SR 12 HR DAILY. documented as of this encounter (statuses as of 12/16/2019) Active Problems Problem Noted Date Mass of [...] Overview: Left carotid artery surgery and stent, 2004. Stable on right . Spinal stenosis 12/12/2003 Hyperlipidemia 12/24/1999 documented as of this encounter (statuses as of 12/16/2019) Resolved Problems Problem Noted Date Resolved Date Atrial fibrillation 12/26/2014 12/26/2014 Hypertension 12/24/1999 05/16/2014 Arthritis 12/24/1999 11/04/2013 documented as of this encounter (statuses as of 12/16/2019) Immunizations Name Administration Dates Next Due Influenza [...] Alcohol Use Drinks/Week oz/Week Comments Yes rarely Alcohol Habits Answer Date Recorded How often do you have a drink containing alcohol? Monthly or less 12/15/2019 How many drinks containing alcohol do you have on a Not asked typical day when you are drinking? How often do you have six or more drinks on one Never 12/15/2019 occasion? Sex Assigned at Date Recorded Not on file documented as of this encounter Last Filed Vital Signs Vital Sign Reading Time Taken Comments Blood Pressure 126/60 12/15/2019 4:40 PM EST Pulse 64 12/15/2019 4:40 PM EST Temperature 36.3 12/15/2019 4:40 PM EST C (97.4 F) Respiratory Rate 20 12/15/2019 4:40 PM EST Oxygen Saturation 92% 12/15/2019 4:40 PM EST Inhaled Oxygen Concentration - - Weight 84.4 kg (186 lb) 12/15/2019 1:21 PM EST Height 170.2 cm (5' 7") 12/15/2019 1:21 PM EST Body Mass Index 29.13 12/15/2019 1:21 PM EST documented in this encounter Plan of Treatment Date Type Specialty Care Team Description 12/23/2019 Office Visit Pulmonary Evon Reed MD [address] [place] [address] 02/15/2020 Lab Internal Medicine 08/09/2020 Ancillary Procedure Radiology 08/09/2020 Office Visit Vascular Surgery Brittny Duque, [employer] [address] [place] [address] [phone] Name Type Priority Associated Diagnoses Date/Time Fine needle aspiration Lab Routine 12/15/2019 2:00 PM EST Fine needle aspiration Lab Routine 12/15/2019 2:00 PM EST Fine needle aspiration Lab Routine 12/15/2019 2:00 PM EST Non-gynecologic cytology Lab Routine 12/15/2019 3:55 PM EST Name Type Priority Associated Diagnoses Order Schedule Fine needle aspiration Lab Routine One Time for 1 Occurrences starting 12/15/2019 until 12/15/2019, 1 completed Fine needle aspiration Lab Routine One Time for 1 Occurrences starting 12/15/2019 until 12/15/2019, 1 completed Fine needle aspiration Lab Routine One Time for 1 Occurrences starting 12/15/2019 until 12/15/2019, 1 completed Non-gynecologic cytology Lab Routine Now for 1 Occurrences starting 12/15/2019 until 12/15/2019, 1 completed Health Maintenance Due Date Last Done Comments [...] Problems Progress Blood Pressure Blood Pressure Essential 126/60 No Miriam, < 140/90 hypertension, (12/15/2019 Emily, benign 4:40 PM EST) Note: Hypertension Care Plan Based [...] Educational Resources: National Heart, Lung, & Blood Freeborn http://nhlbi.nih.gov/hbp/index.html The DASH Diet Eating Plan http://www.nhlbi.nih.gov/health/health-topics/ topics/dash/ Academy of Nutrition & DIetetics http://eatright.org National Smoking Cessation Site http://smokefree.gov Blood Pressure < Blood Pressure 126/60 (12/15/2019 No Emily Pineda, 150/90 4:40 PM EST) Note: This is an individualized [...] my blood sugar results (including dextrose sticks). [facility] is safe and secure way for you [...] numbers are better. Keep immunizations current Lifestyle No Emily Pineda MD Note: This is an individualized lifestyle goal for Armen Gonzalez: Please be sure to keep up-to-date on recommended immunizations. For example, this would include a yearly influenza vaccine. Immunization status can be seen by looking at the Health Maintenance sections of your e[employer], Plan of Care, and any After Visit Summaries. Weight loss vs. 18 mo Lifestyle 9.4 (12/15/2019 1:21 PM No Emily Pineda MD max (lbs) [...] ongoing basis. documented as of this encounter Procedures Procedure Name Priority Date/Time Associated Comments Diagnosis TISSUE EXAM Routine 12/15/2019 3:55 Results for this PM EST procedure are in the results section. XR CHEST 1 VIEW Routine 12/15/2019 3:48 Results for this PM EST procedure are in the results section. XR FLUORO FOR Routine 12/15/2019 3:26 Mass of right lung Results for this BRONCHOSCOPY PM EST procedure are in the results section. PROCEDURE SAFETY 12/15/2019 12:00 CHECKLIST PM EST OTHER BRONCHOSCOPY 12/15/2019 12:00 PM EST SIGN PERMIT 12/15/2019 12:00 PM EST documented in this encounter Results TISSUE EXAM (12/15/2019 3:55 PM EST) Case Report Surgical Pathology Case: [id number] [facility] Authorizing Provider: Evon Reed MD Collected: 12/15/2019 03:55 PM GROUP Ordering Location: [facility] Bronchoscopy Suite Received: 12/16/2019 07:23 AM LABORATORY Pathologist: Michoacano Beckwith MD Specimens: 1) - Bronchial Biopsy RUL, Bronchial biopsy RUL 2) - touch prep, Bronchial biopsy RUL Clinical RUL mass YULEE edulio Information GROUP LABORATORY FINAL DIAGNOSIS Lung, left upper lobe; biopsy: YULEE edulio Electronically - Non-small cell carcinoma (see comment) GROUP signed by NAWAF Beckwith MD on 2. Lung, left upper lobe; touch preparation consultation: 12/16/2019 at 2 :17 - Non-small cell carcinoma (see comment) PM Comment Final classification is deferred to resection material if becomes available. [facility] Case reviewed per policy with a second pathologist, in agreement. LABORATORY Special Stains Immunohistochemistry [facility] Population: Tumor cells GROUP Block: 1A LABORATORY P40 Positive CK5/6 Positive TTF1 Positive Napsin Negative Microscopic Microscopic examination [facility] Description is performed. GROUP LABORATORY Gross 1. The specimen is received in formalin labeled, with the patient's name , MRN, and "Bronchial biopsy RUL". It consists of multiple torres-white and friable soft tissue fragments ranging in size from 0.1 x [facility] Description 0.1 x 0.1 cm to 0.3 x 0.2 x 0.1 cm. The specimen is submitted entirely in cassette 1A. [facility] GROUP LABORATORY 2. One touch preparation smear made from the core biopsy specimen labeled with the patient name, medical records number and "Bronchial Biopsy RUL" and Diff-Quik stained for immediate adequacy assessment. [facility] Gross description is reviewed before signout by Michoacano Beckwith MD Disclaimer The automated immunohistochemistry and direct immunofluorescence assays use analyte specific reagents (ASR). Their performance characteristics have been validated in-house. The US Food and Drug Administ YULEE edulio [facility] (FDA) have not reviewed these assays. The FDA has determined that such clearance or approval is not necessary. These assays are used for clinical purposes, and are not regarded as investigational GROUP or for research. The adequacy of staining is verified by appropriate positive and negative controls. Technical components are performed at the [facility] laboratory, [address] [place] [address]. LABORATORY Gross description is performed at the [facility], [address] [place]. All technical components are performed at the [facility], [address] [place]. Specimen Tissue - touch prep touch prep Performing Organization Address [facility] Phone Number [facility] LABORATORY [address] [place] XR CHEST 1 VIEW (12/15/2019 3:48 PM EST) Specimen Impressions Performed At Negative for pneumothorax. Urgency: Routine. This is a routine medical imaging report. Recommendation: No specific imaging recommendation. Signed by Johnny Esposito MD on 12/15/2019 3:58 PM Narrative Performed At Procedure(s): XR CHEST 1 VIEW Date of service: 12/15/2019 3:36 PM Provided clinical information: 84 years, Male, "Post Bronchoscopy" Procedure and materials: Standard protocol. Comparison studies: 11/23/2019. Observations: Lungs are hypoinflated due to expiratory view. Right upper lobe mass again noted. No pneumothorax identified. Cardiac silhouette appears stable. Procedure Note Interface, Rad Results - 12/15/2019 4:00 PM EST Procedure(s): XR CHEST 1 VIEW Date of service: 12/15/2019 3:36 PM Provided clinical information: 84 years, Male, "Post Bronchoscopy" Procedure and materials: Standard protocol. Comparison studies: 11/23/2019. Observations: Lungs are hypoinflated due to expiratory view. Right upper lobe mass again noted. No pneumothorax identified. Cardiac silhouette appears stable. IMPRESSION Negative for pneumothorax. Urgency: Routine. This is a routine medical imaging report. Recommendation: No specific imaging recommendation. Signed by Johnny Esposito MD on 12/15/2019 3:58 PM XR FLUORO FOR BRONCHOSCOPY (12/15/2019 3:26 PM EST) Specimen Narrative Performed At Fluoroscopy was used to assist the acidizer water well in the [facility] performance of a bronchoscopy exam. Performing Organization Address [facility] Phone Number [facility] [address] [place] [id number] documented in this encounter Visit Diagnoses Diagnosis Mass of right lung documented in this encounter Administered Medications Medication Order MAR Action Action Date Dose Rate Site FentaNYL (PF) (SUBLIMAZE) injection (PF) 25-50 mcg 25-50 mcg, Intravenous, PRN, Starting Fri12/15/19 at 1342, Until Fri12/15/19 at 185, Procedure - Give at the direction of the provider during procedure, 3 Intra-Operative FENTANYL CITRATE (PF) 100 MCG/2ML IJ SOLN 1 dose, Starting Fri12/15/19 at 1355, Until Fri12/15/19 at 185, REED, Skyla: cabinet override, REED, Skyla: cabinet override, flumazenil (ROMAZICON) injection 0.1-0.2 mg 0.1-0.2 mg, Intravenous, PRN, Starting Fri12/15/19 at 1342, Until Fri12/15/19 at 185, Procedure - Give at the direction of the provider during procedure, Give over 30 seconds in a rapidly infusing IV line: may repeat at 60 second intervals up to a maximum dose of 1 mg., 3 Intra-Operative lidocaine (XYLOCAINE) injection 2 % 5 mL, Topical, X1 PRN, 1 dose, Starting Fri12/15/19 at 1342, Until Fri12/15/19 at 185, Procedure - Give at the direction of the provider during procedure, Gargle 5 cc prior to procedure unless intubated, 3 Intra-Operative lidocaine (XYLOCAINE) injection 2 % 50 mL, Topical, PRN, Starting Fri12/15/19 at 1342, Until Fri12/15/19 at 185, Procedure - Give at the direction of the provider during procedure, Inject down bronchoscope during procedure as directed by the provider, 3 Intra-Operative lidocaine (XYLOCAINE) topical jelly 2 % Topical, X1 PRN, 1 dose, Starting Fri12/15/19 at 1342, Until Fri12/15/19 at 185 , Procedure - Give at the direction of the provider during procedure, Have available for Bronchoscopy, 3 Intra-Operative, ., lidocaine-EPINEPHrine (PF) (XYLOCAINE with EPINEPHRINE) injection 2 %-1:691503 50 mL, Topical, PRN, Starting Fri12/15/19 at 1342, Until Fri12/15/19 at 185, Procedure - Give at the direction of the provider during procedure, 3 Intra-Operative, Not for Epidural Use, midazolam (VERSED) injection 0.5-2 mg 0.5-2 mg, Intravenous, PRN, Starting Fri12/15/19 at 1342, Until Fri12/15/19 at 1851, Procedure - Give at the direction of the provider during procedure, Give in increment doses at the discretion of the provider, 3 Intra-Operative MIDAZOLAM HCL (PF) 2 MG/2ML IJ SOLN 1 dose, Starting Fri12/15/19 at 1356, Until Fri12/15/19 at 1851, REED, Skyla: cabinet override, REED, Skyla: cabinet override, naloxone (NARCAN) injection 0.1-0.2 mg 0.1-0.2 mg, Intravenous, PRN, Starting Fri12/15/19 at 1342, Until Fri12/15/19 at 1851, Procedure - Give at the direction of the provider during procedure, Give every 2-3 minutes in a rapidly infusing IV line until a change in alertness is observed, 3 Intra-Operative, Dilute by mixing 0.4 mg of Naloxone with 9 mL of normal saline in a 10 mL syringe. Commonly dose at 0.04 mg x 1; repeated every 5-10 minutes until desired response. Administer by slow IV push 1 mL/min., documented in this encounter Insurance Payer Benefit Plan / Subscriber ID Effective Dates Phone Address Type Group MEDICARE MEDICARE PART A [id number] 2001-Present Medicare & B [facility] [employer] [facility] [id number] 2016-Present [facility] [employer] Guarantor Name Account Type Relation to Date of Phone Billing Address Patient Armen Gonzalez Personal/Famil 1935 [id number] (Home) [facility] [phone] [place], [place] (Work) [address] documented as of this encounter
[2019-12-20] MEDS ORDERED: NS 0.9% 1000 ML** 1,000 ML IV ONE (19:39)
[2019-12-20] MEDS ORDERED: Acetaminophen TAB* 325 MG PO ONE (19:43)
--- NOTE | 2019-12-20 19:56 | ED ---
Complex/Multi-Sys Presentation - HPI Summary HPI Summary: Patient is an 84 y/o M presenting to [facility] via EMS for generalized weakness, decreased appetite, fever, and cough. Cough has been present for the past few weeks. The patient had a recent bronchoscopy and biposies of a right lung mass at [facility], results to be received in the next few days. Today, the patient had onset of generalized weakness and decreased appetite. However, the patient was able to intake food and fluids earlier today. EMS notes that the patient was febrile with a temp of 101.5 F temporal. EMS fingerstick BG was 168. The patient notes that he experiences CP with cough. PMHx of afib, diabetes , HTN, CVA noted; no Hx of MO. He is a former smoker of 20 years. Rare alcohol usage is noted. NKDA reported. Patient wears a CPAP at night. PSHx of carotid artery surgery reported. Home medications and allergies are reviewed. - History Of Current Complaint Chief Complaint: EDShortnessOfBreath Time Seen by Provider: 12/20/19 19:39 Hx Obtained From: Patient Onset/Duration: Still Present Timing: Constant Location: Pain At: - chest, with cough Aggravating Factor(s): cough aggravates CP Associated Signs And Symptoms: Positive: Weakness - generalized, Cough, Chest Pain - w/ cough, Decreased Oral Intake, Fever - Allergies/Home Medications Allergies/Adverse Reactions: Allergies Allergy/AdvReac Type Severity Reaction Status Date / Time No Known Allergies Allergy Verified 12/20/19 19:34 Home Medications: Home Medications Multivitamin [Multivitamins] 1 cap PO DAILY 11/05/13 [History Confirmed 12/20/19 ] Allopurinol TAB* [Zyloprim 100 MG TAB*] 100 mg PO DAILY 12/03/19 [History Confirmed 12/20/19] Apixaban* [Eliquis*] 2.5 mg PO BID 12/03/19 [History Confirmed 12/20/19] Simvastatin (NF) [Zocor (NF)] 40 mg PO DAILY 12/03/19 [History Confirmed ] amLODIPine TAB* [Norvasc 5 mg TAB*] 5 mg PO DAILY 12/03/19 [History Confirmed ] glipiZIDE TAB* [Glucotrol TAB*] 5 mg PO DAILY 12/03/19 [History Confirmed ] PMH/Surg Hx/FS Hx/Imm Hx Endocrine/Hematology History: Reports: Hx Diabetes - pt states he has "borderline diabetes" Cardiovascular History: Reports: Hx Hypercholesterolemia, Hx Hypertension - CONTROL WITH MED, Other Cardiovascular Problems/Disorders - carotid arteries partially occluded. 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 BASAL CELL REMOVED FROM BACK X 2, HO OFFICE. TONSILLECTOMY A CHILD. PIECES OF STEEL REMOVED FROM EYE YEARS, AGO, OFFICE. CATARACT SURGERY B/L EYE October and November 2013 Hx Anesthesia Reactions: No - Immunization History Date of Tetanus Vaccine: Unknown Date of Influenza Vaccine: Up to date Infectious Disease History: No Infectious Disease History: Denies: Traveled Outside the [place] in Last 30 Days - Family History Known Family History: Positive: Other - CA - Social History Alcohol Use: Occasionally Hx Substance Use: No Substance Use Type: Reports: None Smoking Status (MU): Former Smoker - Additional Comments History Additional Comments: Patient reports: PMHx of afib, diabetes, HTN, CVA noted; no Hx of MO. PSHx of carotid artery surgery Review of Systems - ROS Summary Review of Systems Summary: Home Medications Medication Instructions Recorded Confirmed Type Multivitamin [Multivitamins] 1 cap PO DAILY 11/05/13 12/20/19 History Allopurinol TAB* [Zyloprim 100 MG 100 mg PO DAILY 12/03/19 12/20/19 History TAB*] Apixaban* [Eliquis*] 2.5 mg PO BID 12/03/19 12/20/19 History Simvastatin (NF) [Zocor (NF)] 40 mg PO DAILY 12/03/19 12/20/19 History amLODIPine TAB* [Norvasc 5 mg TAB*] 5 mg PO DAILY 12/03/19 12/20/19 History glipiZIDE TAB* [Glucotrol TAB*] 5 mg PO DAILY 12/03/19 12/20/19 History Positive: Fever, Other - Generalized Weakness Positive: Chest Pain - with cough Positive: Cough Positive: Other - Decreased Appetite All Other Systems Reviewed And Are Negative: Yes Physical Exam - Summary Physical Exam Summary: General: Well-developed, Well-nourished, Elderly Male. No acute distress. Mildly -Ill Appearing. HEENT: Normocephalic, Atraumatic. Eyes: Conjuctiva normal, PERRL. Oropharynx: Clear, mucous membranes moist, (-) exudates. Neck: Soft, FROM, (-) lymphadenopathy, (-) thyromegaly, (-) JVD. Cardiovascular: Irregularly irregular, (-) murmur. Lungs: Tight wheezing throughout, rhonchorous breath sounds bilaterally Abdomen: Soft, non-tender, non-distended, (-) organomegaly, normal bowel sounds. Back: (-) CVA tenderness Extremities: Trace edema. Skin: Warm, dry, (-) rash. Neuro: Alert and oriented x3, moves all extremities equally. No ataxia. No gait disturbance. No sensory deficit. Normal strength, normal sensation. Psychiatric: Mood normal, affect normal. Triage Information Reviewed: Yes Vital Signs On Initial Exam: Initial Vitals Temp Pulse Resp BP Pulse Ox 97.8 F 89 22 141/68 97 12/20/19 19:27 12/20/19 19:27 12/20/19 19:27 12/20/19 19:27 12/20/19 19:27 Vital Signs Reviewed: Yes Procedures - Sedation Patient Received Moderate/Deep Sedation with Procedure: No Diagnostics - Vital Signs Vital Signs Temp Pulse Resp BP Pulse Ox 12/20/19 19:27 97.8 F 89 22 141/68 97 - Laboratory Result Diagrams: 12/20/19 19:50 12/20/19 19:50 Lab Statement: Any lab studies that have been ordered have been reviewed, and results considered in the medical decision making process. - Radiology CXR Radiology Interpretation Completed By: ED Physician Summary of Radiographic Findings: Poor inspiration, continued right upper lobe mass, pending official report. - CT CHEST CT CT Interpretation Completed By: Radiologist Summary of CT Findings: IMPRESSION: 1. The necrotic and spiculated mass in the right parahilar region contains. internal air densities on the current exam which could be due to recent biopsy. or cannot exclude infection by gas- forming organisms within the mass or. abscess. The maximum size of the necrotic portion of the mass does not appear. significantly changed measuring a maximum of 5.2 cm. Again, there is dense. consolidation or atelectatic change likely representing postobstructive. atelectasis in the right upper lobe which appears unchanged. 2. Stable mediastinal and right hilar lymphadenopathy. There is new small. quantity of pneumomediastinum in the right paratracheal region likely related. to recent biopsy. 3. Stable small right pleural effusion. THIS REPORT WAS REVIEWED BY ED PHYSICIAN. Complex Multi-Symp Course/Dx Course Of Treatment: 84-year-old male presents from home by ambulance for shortness of breath and wheezing. states that tonight he was too weak to get up. He was recently seen here and had CAT scan of the chest which demonstrated a right upper lobe mass. Patient had bronchoscopy done last week at [facility] awaiting the results of the biopsies. Over the last couple days he has had decreased energy. Fatigue and weakness. Decreased appetite. Increasing cough. Productive sputum. upon arrival in EMS to patient was febrile. Had pulse ox of 91% on room air. Patient is mildly ill- appearing. Tight wheezing throughout. DuoNeb ordered. Patient has normal lactic acid. Normal white count. CAT scan demonstrates similar appearing right upper lobe mass. Post obstructive atelectasis. Possible infection versus air from bronchoscopy and biopsies. Patient referred to hospitalist for pulmonary infection and hypoxia. his blood pressure was normal upon arrival. It has decreased during his stay. IV fluids were ordered. would consider sepsis. However, his temperature remains normal here. White count and lactic acid are normal. patient started on Zosyn and Vanco. Referred to hospitalist for admission. During ED course, patient received fluids, duoneb, and Tylenol 975 mg PO. - Diagnoses Provider Diagnoses: Weakness, Hypoxia - Physician Notifications Discussed Care Of Patient With: Edward Clancy Time Discussed With Above Provider: 23:13 Instructed by Provider To: Other - Patient's case was discussed with Dr. Clancy , Dr. Clancy accepts for admission. Discharge ED - Sign-Out/Discharge Documenting (check all that apply): Patient Departure - admit All imaging exams completed and their final reports reviewed: Yes - Discharge Plan Condition: Stable Disposition: ADMITTED TO [facility] - Attestation Statements Document Initiated by Scribe: Yes Documenting Scribe: LUZ SNOW Provider For Whom Scribe is Documenting (Include Credential): GLYNN BARRETT MD Scribe Attestation: ILUZ, scribed for GLYNN BARRETT MD on 12/21/19 at 0159. Status of Scribe Document: Ready
[2019-12-20 20:05] LABS: ABS Basophils 0.1 10^3/ul (0-0.2); ABS Eosinophils 0.1 10^3/ul (0-0.6); ABS Lymphocytes 1.2 10^3/ul (1.0-4.8); ABS Monocytes 0.9 10^3/ul (0-0.8); ABS Neutrophils 8.4 10^3/ul (1.5-7.7); Eosinophil % 0.7 %; Hematocrit 39 % (42-52); Hemoglobin 12.8 g/dL (14.0-18.0); Mean Corpuscular HGB Conc 33 g/dL (31-36); Mean Corpuscular Hemoglobin 26 pg (27-31); Mean Corpuscular Volume 80 fL (80-94); Mean Platelet Volume 6.5 fL (7.4-10.4); Platelet Count 354 10^3/uL (150-450); Red Blood Count 4.84 10^6 /uL (4.18-5.48); Red Cell Distribution Width 17 % (10-15); White Blood Count 10.6 10^3/uL (3.5-10.8)
[2019-12-20 20:24] LABS: Troponin I 0.01 ng/mL (<0.03)
[2019-12-20 20:27] LABS: Albumin 3.4 g/dL (3.2-5.2); Albumin/Globulin Ratio 0.8 (1-3); BUN/Creatinine Ratio 17.5 (8-20); Calcium 9.4 mg/dL (8.6-10.3); EGFR African American 74.2 (>60); EGFR Non-African American 61.3 (>60); Globulin 4.5 g/dL (2-4); Potassium 4.4 mmol/L (3.5-5.0); Total Bilirubin 0.4 mg/dL (0.2-1.0); Total Protein 7.9 g/dL (6.4-8.9)
[2019-12-20 20:34] LABS: INR 1.35 (0.82-1.09)
[2019-12-20 21:05] LABS: Influenza A Molecular Negative (Negative); Influenza B Molecular Negative (Negative)
[2019-12-20] MEDS ORDERED: Albuterol/Ipratropium NEB.SOL* Albuterol 2.5 MG/Ipratropium 0.5 MG 3 ML INH ONE ×2 (21:12→23:06)
[2019-12-20] MEDS ORDERED: Iodixanol* (CONTRAST) 320 MG/ML 100 ML SDV IV ONE (21:48)
[2019-12-20] MEDS ORDERED: Ondansetron INJ* 2 MG/ML VIAL IV PRN (23:55)
[2019-12-20] MEDS ORDERED: Piperacillin/Tazobac ADVAN(*) 3.375 GM in NS 0.9% 100 ML* 100 ML IVPB ONE (23:56)
[2019-12-21] MEDS ORDERED: Vancomycin(*) 1,000 MG in NS 0.9% 250 ML* 250 ML IV ONE (00:15)
[2019-12-21] MEDS ORDERED: NS 0.9% 1000 ML** 1,000 ML IV ONE ×2 (00:15)
[2019-12-21 05:45] LABS: Urine Appearance Clear; Urine Bacteria 1+ (Absent); Urine Bilirubin Negative (Negative); Urine Blood Negative (Negative); Urine Color Yellow; Urine Glucose Negative (Negative); Urine Ketones Negative (Negative); Urine Nitrite Negative (Negative); Urine Protein 2+(100 mg/dL) (Negative); Urine Red Blood Cell 1+(3-5/hpf) (Absent); Urine Specific Gravity 1.041 (1.010-1.030); Urine Squamous Epithelial Cell Present (Absent); Urine Urobilinogen Negative (Negative); Urine White Blood Cell Trace(0-5/hpf) (Absent)
[2019-12-21 05:59] LABS: ABS Basophils 0.1 10^3/ul (0-0.2); ABS Monocytes 0.8 10^3/ul (0-0.8); ABS Neutrophils 7.7 10^3/ul (1.5-7.7); Eosinophil % 0.2 %; Hematocrit 34 % (42-52); Hemoglobin 11.3 g/dL (14.0-18.0); Lymphocyte % 10.5 %; Mean Corpuscular HGB Conc 33 g/dL (31-36); Mean Corpuscular Hemoglobin 27 pg (27-31); Mean Corpuscular Volume 80 fL (80-94); Mean Platelet Volume 6.6 fL (7.4-10.4); Platelet Count 285 10^3/uL (150-450); Red Blood Count 4.21 10^6 /uL (4.18-5.48); Red Cell Distribution Width 16 % (10-15); White Blood Count 9.6 10^3/uL (3.5-10.8)
[2019-12-21 06:12] LABS: BUN/Creatinine Ratio 15.4 (8-20); Calcium 8.3 mg/dL (8.6-10.3); EGFR Non-African American 59.5 (>60); Magnesium 1.3 mg/dL (1.9-2.7); Potassium 4.1 mmol/L (3.5-5.0)
[2019-12-21] MEDS ORDERED: Magnesium Sulfate IV* 3 GM in NS 0.9% 100 ML* 100 ML IVPB ONE (08:59)
[2019-12-21 09:24] LABS: C Reactive Protein 161.38 mg/L (<8.01)
[2019-12-21] MEDS ORDERED: Dextrose 50% Syringe 50 ML* 25 GM/50 ML SYRINGE IV PUSH PRN (09:25)
[2019-12-21] MEDS: Piperacillin/Tazobac ADVAN(*) 3.375 GM in NS 0.9% 100 ML* 100 ML IVPB SCH ×2 (09:53→17:35)
[2019-12-21] MEDS: Multivitamins/Minerals TAB PO SCH (09:53)
[2019-12-21] MEDS: glipiZIDE TAB* 5 MG PO SCH (09:53)
[2019-12-21] MEDS: Atorvastatin* 20 MG TAB PO SCH (09:54)
[2019-12-21] MEDS: amLODIPine TAB* 5 MG PO SCH (09:54)
[2019-12-21] MEDS: Apixaban* 2.5 MG TAB PO SCH ×2 (09:54→20:08)
[2019-12-21] MEDS: Docusate CAP* 100 MG PO SCH ×2 (09:55→20:07)
[2019-12-21] MEDS: Allopurinol TAB* 100 MG PO SCH (09:55)
[2019-12-21] MEDS: Magnesium Oxide TAB* 400 MG PO SCH (09:55)
[2019-12-21] MEDS: Insulin LISPRO* 1 UNITS UNIT SUBCUT SCH ×3 (12:44→21:03)
--- NOTE | 2019-12-21 17:06 | PN ---
Subjective Date of Service: 12/21/19 Interval History: Pt c/o cough , swallowing phlegm, ever since his PNA dx 1 year ago. Developed CP with cough 1.5 week ago-had a CT in ED and noted to have large R hilar mass. Bx done on 12/15/[address] Reed in [facility]. for the past 3 days more phelgm production and fever at admission He also saw a cardiothoracic surgeon on 12/14/19 in [place] Today still coughing a lot, no CP Objective Active Medications: Allopurinol (Zyloprim Tab*) 100 mg PO DAILY [facility] Last Admin: 12/21/19 09:55 Dose: 100 mg Amlodipine Besylate (Norvasc Tab*) 5 mg PO DAILY [facility] Last Admin: 12/21/19 09:54 Dose: 5 mg Apixaban (Eliquis*) 2.5 mg PO BID [facility] Last Admin: 12/21/19 09:54 Dose: 2.5 mg Atorvastatin Calcium (Lipitor*) 20 mg PO DAILY [facility] Last Admin: 12/21/19 09:54 Dose: 20 mg Dextrose (D50w Syringe 50 Ml*) 12.5 gm IV PUSH .FOR FS < 60 - SS PRN PRN Reason: FS < 60 Docusate Sodium (Colace Cap*) 100 mg PO BID [facility] Last Admin: 12/21/19 09:55 Dose: Not Given Glipizide (Glucotrol Tab*) 5 mg PO DAILY [facility] Last Admin: 12/21/19 09:53 Dose: 5 mg Piperacillin Sod/Tazobactam (Sod 3.375 gm/ Sodium Chloride) 100 mls @ 25 mls/ hr IVPB Q8H [facility] Last Admin: 12/21/19 09:53 Dose: 25 mls/hr Insulin Human Lispro (Humalog*) 0 units SUBCUT ACHS [facility]; Protocol Last Admin: 12/21/19 12:44 Dose: 4 units Magnesium Oxide (Magox 400 Tab*) 800 mg PO DAILY [facility] Last Admin: 12/21/19 09:55 Dose: 800 mg Multivitamins/Minerals (Theragran/Minerals Tab*) 1 tab PO DAILY [facility] Last Admin: 12/21/19 09:53 Dose: 1 tab Ondansetron HCl (Zofran Inj*) 4 mg IV Q4H PRN PRN Reason: NAUSEA/VOMITING Vital Signs - 8 hr 12/21/19 11:15 Temperature 99.2 F Pulse Rate 75 Respiratory 18 Rate Blood Pressure 119/50 (mmHg) O2 Sat by Pulse 98 Oximetry Oxygen Devices in Use Now: Nasal Cannula, CPAP Appearance: 84 yo m in nAD, aAOx3 Eyes: No Scleral Icterus, PERRLA Ears/Nose/Mouth/Throat: NL Teeth, Lips, Gums, Mucous Membranes Moist Neck: NL Appearance and Movements; NL JVP, Trachea Midline Respiratory: - - rhonchi at RUL, RML, left base Cardiovascular: NL Sounds; No Murmurs; No JVD, RRR Abdominal: NL Sounds; No Tenderness; No Distention, No Hepatosplenomegaly Lymphatic: No Cervical Adenopathy Extremities: No Clubbing, Cyanosis Skin: No Nodules or Sclerosis Neurological: Alert and Oriented x 3, NL Muscle Strength and Tone Result Diagrams: 12/21/19 05:27 12/21/19 05:27 Microbiology and Other Data: Microbiology 12/21/19 05:15 Gram Stain - Final Sputum Expectorated Assess/Plan/Problems-Billing Assessment: 84 yo m with h/o PAF(on Eliquis), DM2, RBBB, CAD(cath in 2015- occluded LAD with collaterals). EDACON on CPAP, HTN presents with fever , SOB cough , s/p bx of lung mass 12/15/19 - Patient Problems (1) Postobstructive pneumonia Comment: sputum cx pending, pt on Zosyn at admission, febrile after bronch and bx. will switch to Cefepime and Vanc (2) Lung mass Comment: got report from DR. Reed's office-pt had non small cell lung cancer Dr. Heck consulted consult placed for Dr. Graves who will see pt in aM. CT abd /pelvis to eval for mets ordered. Pt was informed about the dx today (3) Hypertension Comment: controled, cont Norvasc (4) DM2 (diabetes mellitus, type 2) Comment: cont glipizide and ISS (5) Atrial fibrillation Comment: h/o , cont Eliquis (6) Hyperkalemia Comment: h/o renal diet requested (7) Hypomagnesemia Comment: replacing (8) DVT prophylaxis Comment: eliquis Status and Disposition: inpatient
[2019-12-21] MEDS ORDERED: Iodixanol* (CONTRAST) 320 MG/ML 100 ML SDV IV ONE (17:30)
--- NOTE | 2019-12-21 17:42 | HP ---
HISTORY AND PHYSICAL: DATE OF ADMISSION: 12/20/19 HISTORY OF PRESENT ILLNESS: This is an 84-year-old male who presented to ED with generalized weakness, decreased appetite, fever, and cough. Cough has been present for the past week associated with chest pain with deep coughing. The patient had a recent bronchoscopy and biopsy of a right lung mass at [facility]. Results yet to be received in the next few days. Today, the patient noticed generalized weakness and decreased appetite. He said he was able to tolerate food and fluid earlier in the day, but as the day progressed, he noticed loss of appetite and could not take in any food or fluid. He called the family and they called EMS. EMS did state that the patient was febrile at 101.5 and the fingersticks was at 168. The patient said that cough is productive. lung biopsy, the patient stated he noticed the chest pain with worsening cough, but as of today he reported the chest pain. He denied rigors. Denied diarrhea. No constipation. The patient wears CPAP at night and has a remote history of carotid artery surgery. He said he is compliant with all the medications. PAST MEDICAL HISTORY: 1. Left medullary CVA in 1999. 2. Status post left carotid endarterectomy in 2003. 3. History of skin cancer. 4. Hypertension. 5. History of impaired glucose tolerance. 6. History of obstructive apnea, on CPAP. 7. AFib, no history of [place]. PAST SURGICAL HISTORY: Carotid artery surgery. HOME MEDICATIONS: 1. Multivitamin 1 capsule p.o. daily. 2. Allopurinol 100 mg p.o. daily. 3. Eliquis 2.5 mg p.o. b.i.d. 4. Simvastatin 40 mg p.o. daily. 5. Amlodipine 5 mg p.o. daily. 6. Glipizide 5 mg p.o. daily. ALLERGIES: No known drug allergies. FAMILY HISTORY: Mother who due to unknown cancer, the mother at 36. The patient was adopted, does not know his father, never met him before. SOCIAL HISTORY: The patient has a history of smoking up to 2 packs per day and he quit in the year 1999. He drinks occasionally beer, but he said he has been off alcohol for about 2 years now. Denied use of illicit drugs. 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 He lives with his who is his surrogate decision maker. REVIEW OF SYSTEMS: Positive for fever, generalized weakness, chest pain with deep coughing. Positive for cough, decreased appetite. All other systems reviewed are negative. PHYSICAL EXAMINATION GENERAL: A well-developed, well-nourished elderly male, in no acute distress, mildly ill appearing. VITAL SIGNS: Initial temperature 97.8, pulse 89, respiratory rate 22, BP 141/68 , pulse oximetry 97% at 1927 hours. HEENT: Normocephalic, atraumatic. Eyes: Conjunctivae normal. PERRLA. Oropharynx clear. Mucous membranes moist. No exudates. NECK: Soft, full range of motion. No lymphadenopathy. No thyromegaly. No JVD. LUNGS: [place] wheezing throughout. Rhonchorous breath sounds bilaterally. CARDIOVASCULAR: Irregularly irregular. Negative murmurs. ABDOMEN: Soft, nontender, nondistended. No organomegaly. Normal bowel sounds. BACK: No CVA tenderness. EXTREMITIES: Trace edema. NEUROLOGIC: Alert and oriented x3. Moves all extremities equally. No ataxia. No gait disturbance. No sensory deficits. Normal strength. Normal sensation. PSYCHIATRIC: Mood normal. Affect normal. SKIN: Warm and dry. No rashes. LABORATORY RESULTS: Hematology: WBC 10.6, RBC 4.64, hemoglobin 12.8, hematocrit 39, MCV 80, MCH 26, MCHC 33, RDW 17, platelet count 354, MPV 6.5. Chemistry: Sodium 132, potassium 4.4, chloride 97, carbon dioxide 26, anion gap 9, BUN 20, creatinine 1.14, estimated GFR non- 51.3, BUN/ creatinine ratio of 17.5, glucose 145, calcium 9.4, lactic acid 1.21. Total bilirubin 0.40, AST 12, ALT 11, alkaline phosphatase 98. Troponin 0.01. Total protein 7.9, albumin 3.4, globulin 4.5, albumin/globulin ratio 0.8. BNP 136. DIAGNOSTIC IMAGING: Chest x-ray report: No significant change in large opacity at the right lung apex, likely a combination of central obstructive mass and a postoperative atelectasis and pneumonitis associated right hemithorax volume loss. Suboptimal inspiration is in evidence for hyperinflation on the prior exam resulting hardening of the pulmonary markings on the subsegmental atelectasis. Grossly clear pleural spaces, negative for pneumothorax. Cardiomegaly without gross change. Remarkable central pulmonary vasculature and nonobscured mediastinal margins. Impression: Right lung apex, likely a combination of central obstructive mass and postobstructive atelectasis and pneumonitis. CT chest report, impression: A necrotic and spiculated mass in the right parahilar region contains internal density on the carotid which could be due to recent biopsy or cannot exclude infection by gas forming organisms within the mass or abscess. The maximum size of the necrotic portion of the mass does not appear changed measuring a maximum of 5.2 cm. Again, there is dense consolidation or atelectatic change, likely representing postobstructive atelectasis in the right upper lobe which appears unchanged. Stable mediastinal and right hilar lymphadenopathy that is new. Small quantity of pneumomediastinum in the right paratracheal region, likely related to recent biopsy. Stable small right pleural effusion. ASSESSMENT AND PLAN: An 84-year-old male presenting to the ED with generalized weakness, decreased appetite, fever, and cough, and based on CT and x-ray findings, will be admitted for pneumonitis as a principal diagnosis, weakness which will be due to dehydration and a decreased p.o. intake, atrial fibrillation, hypertension, diabetes mellitus, and history of remote cerebrovascular accident. For the pneumonitis, the patient will be continued on IV Zosyn 3.375 g q.8 hours. Due to the recent biopsy, a pulmonary consult will be called to evaluate the patient tomorrow. For weakness and dehydration, the patient received 2 L of IV normal saline in the ED. Encourage p.o. intake. I will continue gentle hydration at this time. Follow up a.m. labs. For hypertension, the patient will continue his home med with holding parameters , amlodipine 5 mg p.o. daily. For diabetes mellitus, the patient will continue his home meds, glipizide 5 mg p.o., with insulin sliding scale as adjunct. For hyperlipidemia, the patient will continue simvastatin 40 mg p.o. daily. For gout, the patient will continue allopurinol 100 mg p.o. daily. For atrial fibrillation, the patient to continue Eliquis 2.5 mg daily b.i.d. His atrial fibrillation is rate controlled at this time. DVT prophylaxis, the patient is on Eliquis. Nutrition, diabetic diet. Code status, full code at this time. TIME SPENT: Time spent on this admission was greater than 60 minutes, greater than half of that time was spent [id number] with the patient obtaining my history and physical, the other half of the time was spent going over the plan of care with the patient and implementing plan of care. Thank you very much for the opportunity to partake in the healthcare need of this ginette gentleman. [id number]/[facility] #: [id number] HE
[2019-12-21] MEDS ORDERED: Vancomycin per Pharmacy* NOTE FOLLOW UP SCH (18:00)
[2019-12-21] MEDS ORDERED: Vancomycin(*) 1,500 MG in NS 0.9% 250 ML* 250 ML IVPB ONE (18:00)
[2019-12-21] MEDS ORDERED: Cefepime 2 GM in Dextrose(*) 2 GM/50 ML BAG IV SCH (18:30)
[2019-12-21] MEDS: Acetaminophen TAB* 325 MG PO PRN (20:08)
[2019-12-21] MEDS: Albuterol 2.5 MG/3 ML NEB.SOL* (0.083%) INH PRN (21:09)
--- NOTE | 2019-12-22 00:24 | CONS ---
PULMONARY CONSULTATION REPORT: DATE OF CONSULT: 12/21/19 CONSULTATION REQUESTED BY: Dr. Lesley Rosenthal. REASON FOR CONSULT: Evaluation of abnormal CT chest. HISTORY OF PRESENT ILLNESS: The patient is an 84-year-old male, former smoker with significant smoking history, quit in 1999. The patient recently was evaluated for abnormal x-ray, was hospitalized to [facility] in [place] a few days ago. The patient had bronchoscopy done at that time with bronchial washings and biopsies done. The patient was experiencing generalized weakness and decreased appetite. He had not been able to tolerate food for past day prior to the presentation. He was brought into the ED for further evaluation. The patient was noted to be febrile with T-max of 101.5 in the ED. His blood sugars were slightly elevated at 168. He was noted to be having productive cough. The patient also reports worsening pain in the right chest associated with the cough. Denies rigors. Denies diarrhea, constipation, or urinary complaints. Further evaluation included chest x-ray and CT scan of the chest. I personally reviewed chest x-ray and CT scan of the chest. The CT showed evidence of necrotic mass with spiculated appearance in the right perihilar area. The patient noted to have narrowing of the trachea, and narrowing and occlusion of right upper lobe bronchus with resultant atelectatic lung in the area. The patient with 5.2-cm mass lesion in that area with surrounding postobstructive pneumonia findings. He also was noted to have prominent mediastinal and hilar adenopathy. Small amount of pneumomediastinum noted in the right paratracheal area. He was also noted to have small right pleural effusion. The patient was admitted for management of postobstructive pneumonia. The patient reports no significant improvement in symptoms. Continues to cough, but he is able to expectorate the phlegm. He has a history of sleep apnea. He wears CPAP in the night with which he has been compliant. PAST MEDICAL HISTORY: 1. Left medullary CVA in 1999. 2. Status post left carotid endarterectomy in 2003. 3. History of skin cancer. 4. Hypertension. 5. History of impaired glucose tolerance. 6. History of obstructive sleep apnea, on CPAP. 7. AFib, no [place]. 8. Recent diagnosis of right upper lobe mass, status post bronchoscopy and biopsy in [facility] early this month, positive for non-small cell lung cancer. PAST SURGICAL HISTORY: Carotid artery surgery. MEDICATIONS: At home: 1. Multivitamin. 2. Allopurinol. 3. Eliquis. 4. Simvastatin. 5. Amlodipine. 6. Glipizide. ALLERGIES: No known drug allergies. FAMILY HISTORY: Mother of unknown cancer at age 36. SOCIAL HISTORY: Smoker up to 2 packs per day, quit in 1999. Occasional alcohol intake. No drug abuse. 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 REVIEW OF SYSTEMS: All 12 systems were reviewed and as per HPI. PHYSICAL EXAM: Obese male, in bed, in no apparent distress. Vital Signs: Temperature 100.5, pulse 85 beats per minute, respiratory rate 18 per minute, O2 sat 98% on 4 L, blood pressure 140/45. HEENT: Pupils are equal and reactive to light. Mucous membranes are moist. Mallampati class 4 airway. Lungs: Diminished air entry bilaterally, scattered wheeze and rhonchi especially on the right side. Cardiovascular: S1, S2 present. Abdomen: Obese. Bowel sounds present. Extremities: Normal range of motion. Skin: No rash or bruises. Neuro: Alert and awake with no focal deficits. DIAGNOSTIC STUDIES/LAB DATA: WBC count 9.6, hemoglobin 11.3, hematocrit 34, platelet count 285. Sodium 132, potassium 4.1, chloride 100, bicarb 23, BUN 18 , creatinine 1.17, glucose 157. CRP 161. Magnesium 1.3. Influenza A and B negative. X-ray and CT scan of the chest as described above in HPI. IMPRESSION AND RECOMMENDATIONS: 84-year-old male with significant smoking history, found to have right upper lobe lung mass, recent bronchoscopy positive for non-small cell lung cancer. The patient presents with post-obstructive pneumonia. The patient started on broad-spectrum antibiotics, which is appropriate in the setting of post-obstructive pneumonia. The patient is able to expectorate the secretions currently, not in need of bronchoscopy. The patient is requiring oxygen supplementation currently at 4 L per minute secondary to atelectasis in the right upper lobe area. The patient has not required oxygen in the past. Has not improved much since admission. Thank you for allowing me to participate in the care of your patient. Will follow up with you. [id number]/[facility] #: [id number] [facility]
[2019-12-22 04:46] LABS: BUN/Creatinine Ratio 15.5 (8-20); Calcium 8.6 mg/dL (8.6-10.3); EGFR African American 72.8 (>60); EGFR Non-African American 60.1 (>60); Magnesium 1.7 mg/dL (1.9-2.7)
[2019-12-22] MEDS ORDERED: Vancomycin(*) 1,000 MG in NS 0.9% 250 ML* 250 ML IV SCH (06:00)
[2019-12-22] MEDS: Magnesium Oxide TAB* 400 MG PO SCH (08:39)
[2019-12-22] MEDS: Atorvastatin* 20 MG TAB PO SCH (08:39)
[2019-12-22] MEDS: Apixaban* 2.5 MG TAB PO SCH ×2 (08:40→20:26)
[2019-12-22] MEDS: Allopurinol TAB* 100 MG PO SCH (08:40)
[2019-12-22] MEDS: Multivitamins/Minerals TAB PO SCH (08:40)
[2019-12-22] MEDS: glipiZIDE TAB* 5 MG PO SCH (08:41)
[2019-12-22] MEDS: amLODIPine TAB* 5 MG PO SCH (08:41)
[2019-12-22] MEDS: Cefepime 2 GM in Dextrose(*) 2 GM/50 ML BAG IV SCH ×2 (08:41→20:26)
[2019-12-22] MEDS: Docusate CAP* 100 MG PO SCH ×2 (08:41→20:26)
[2019-12-22] MEDS: Insulin LISPRO* 1 UNITS UNIT SUBCUT SCH ×4 (08:41→20:28)
[2019-12-22] MEDS ORDERED: Magnesium Sulfate 2 GM IV* 2 GM/50 ML BAG IVPB ONE (08:46)
--- NOTE | 2019-12-22 11:06 | CONSULT ---
Consultation - Reason for Consultation Reason for Consultation: lung cancer Ordering Provider: Lesley Rosenthal Chief Complaint: shortness of breath History of Present Illness: 84 yo M w remote heavy tobacco use and newly diagnosed lung cancer. Armen reports that 1 year ago he had the flu followed by pneumonia (clinical diagnosis per his report). He was given a course of antibiotics but his cough and shortness of breath never fully abated/returned to baseline. In October his breathing worsened. In November he went to the ER with these complaints and had a CT scan which was notable for a large (5cm) RUL/perihilar mass with adenopathy. He was referred as an outpatient to [facility], Dr. Reed, and underwent a bronchoscopy on 12/15, the pathology of which is notable for a TTF1 positive lung adenocarcinoma. It is not clear to me if lymph nodes were sampled. Post procedure he continued to have shortness of breath and cough. He then developed anorexia and activated EMS. On their arrival he was febrile to 101.5. He had a repeat chest CT here which I have personally reviewed, and shows a stable RUL mass, a small right pleural effusion, and postobstructive consolidation. He is being treated with broad spectrum antibiotics and supplemental oxygen, though reports at baseline he is not on oxygen. He feels better than admission but is still coughing and short of breath. He denies headaches, nausea, vision changes. He has had "mild" weight loss. CT A/P does not show any obvious metastatic disease. He reports prior to November he was able to ambulate up a flight of stairs. He is still fairly active and independent of ADLs. Allergies/Medications Medication: Acetaminophen (Tylenol Tab*) 650 mg PO Q4H PRN PRN Reason: PAIN - MILD Last Admin: 12/21/19 20:08 Dose: 650 mg Albuterol (Ventolin 2.5 Mg/3 Ml Neb.Shaina*) 2.5 mg INH Q4H PRN PRN Reason: SOB/WHEEZING Last Admin: 12/21/19 21:09 Dose: 2.5 mg Allopurinol (Zyloprim Tab*) 100 mg PO DAILY [facility] Last Admin: 12/22/19 08:40 Dose: 100 mg Amlodipine Besylate (Norvasc Tab*) 5 mg PO DAILY [facility] Last Admin: 12/22/19 08:41 Dose: 5 mg Apixaban (Eliquis*) 2.5 mg PO BID [facility] Last Admin: 12/22/19 08:40 Dose: 2.5 mg Atorvastatin Calcium (Lipitor*) 20 mg PO DAILY [facility] Last Admin: 12/22/19 08:39 Dose: 20 mg Dextrose (D50w Syringe 50 Ml*) 12.5 gm IV PUSH .FOR FS < 60 - SS PRN PRN Reason: FS < 60 Docusate Sodium (Colace Cap*) 100 mg PO BID [facility] Last Admin: 12/22/19 08:41 Dose: 100 mg Glipizide (Glucotrol Tab*) 5 mg PO DAILY [facility] Last Admin: 12/22/19 08:41 Dose: 5 mg Cefepime HCl (Maxipime 2 Gm In Dextrose Duplex (*)) 2 gm in 50 mls @ 100 mls/ hr IV Q12HR [facility] Last Admin: 12/22/19 08:41 Dose: 100 mls/hr Insulin Human Lispro (Humalog*) 0 units SUBCUT ACHS [facility]; Protocol Last Admin: 12/22/19 08:41 Dose: 1 units Magnesium Oxide (Magox 400 Tab*) 800 mg PO DAILY [facility] Last Admin: 12/22/19 08:39 Dose: 800 mg Multivitamins/Minerals (Theragran/Minerals Tab*) 1 tab PO DAILY [facility] Last Admin: 12/22/19 08:40 Dose: 1 tab Ondansetron HCl (Zofran Inj*) 4 mg IV Q4H PRN PRN Reason: NAUSEA/VOMITING Pharmacy Consult (Vancomycin Per Pharmacy*) 1 note FOLLOW UP .VANC PER PHARMACY [facility]; Protocol Pharmacy Profile Note (Vancomycin Trough Check) 1 note FOLLOW UP 6399 ONE Stop: 12/22/19 17:31 Allergies/Adverse Reactions: Allergies Allergy/AdvReac Type Severity Reaction Status Date / Time No Known Allergies Allergy Verified 12/20/19 19:34 History - Past Medical History Other History: afib. CVA. HTN. DM. DEACON on CPAP. skin cancer. left CEA - Family History Hx Family Cancer: Yes - mother some type of cancer - Social History Hx Alcohol Use: No Other Social History: 2 ppd, quit 20 years ago. lives w Review of Systems - Review of Systems Constitutional Symptoms: Positive: Fatigue, Fever Dermatology: Positive: Normal HEENT: Positive: Normal Eyes: Positive: Normal Thyroid: Positive: Normal Pulmonary: Positive: Cough, Shortness of Breath Cardiology: Positive: Normal Gastroenterology: Positive: Anorexia Genital - Urinary: Positive: Normal Endocrinology: Positive: Diabetes Mellitus Neurology: Positive: Normal Psychiatry: Positive: Normal Physical Exam - Physical Exam Physical Examination: Vital Signs Temp Pulse Resp BP Pulse Ox 99.3 F 78 18 140/60 97 12/22/19 03:13 12/22/19 03:13 12/22/19 03:13 12/22/19 03:13 12/22/19 03:13 sitting up in nad perr eomi op moist wheezing RUL, mild SREE s1 s2 nl soft obese nt +bs R>L LE edema A+O x3, nonfocal neurological exam Results - Lab Results Lab Results: 12/20/19 12/20/19 12/20/19 19:50 19:50 19:50 WBC 10.6 RBC 4.84 Hgb 12.8 L Hct 39 L MCV 80 MCH 26 L MCHC 33 RDW 17 H Plt Count 354 MPV 6.5 L Neut % (Auto) 79.0 Lymph % (Auto) 11.0 [place] % (Auto) 8.4 Eos % (Auto) 0.7 Baso % (Auto) 0.9 Absolute Neuts (auto) 8.4 H Absolute Lymphs (auto) 1.2 Absolute Monos (auto) 0.9 H Absolute Eos (auto) 0.1 Absolute Basos (auto) 0.1 Absolute Nucleated RBC 0.0 Nucleated RBC % 0.0 INR (Anticoag Therapy) 1.35 H Sodium 132 L Potassium 4.4 Chloride 97 L Carbon Dioxide 26 Anion Gap 9 BUN 20 Creatinine 1.14 Est GFR ( Amer) 74.2 Est GFR (Non-Af Amer) 61.3 BUN/Creatinine Ratio 17.5 Glucose 145 H POC Glucose (mg/dL) Lactic Acid Calcium 9.4 Magnesium Total Bilirubin 0.40 AST 12 L ALT 11 Alkaline Phosphatase 98 Troponin I 0.01 C-Reactive Protein B-Natriuretic Peptide Total Protein 7.9 Albumin 3.4 Globulin 4.5 H Albumin/Globulin Ratio 0.8 L Urine Color Urine Appearance Urine pH Ur Specific [place] Urine Protein Urine Ketones Urine Blood Urine Nitrate Urine Bilirubin Urine Urobilinogen Ur Leukocyte Esterase Urine WBC (Auto) Urine RBC (Auto) Ur Squamous Epith Cells Urine Bacteria Urine Glucose Urine Ascorbic Acid Influenza A (Rapid) Influenza B (Rapid) 12/20/19 12/20/19 12/20/19 19:50 19:50 20:38 WBC RBC Hgb Hct MCV MCH MCHC RDW Plt Count MPV Neut % (Auto) Lymph % (Auto) [place] % (Auto) Eos % (Auto) Baso % (Auto) Absolute Neuts (auto) Absolute Lymphs (auto) Absolute Monos (auto) Absolute Eos (auto) Absolute Basos (auto) Absolute Nucleated RBC Nucleated RBC % INR (Anticoag Therapy) Sodium Potassium Chloride Carbon Dioxide Anion Gap BUN Creatinine Est GFR ( Amer) Est GFR (Non-Af Amer) BUN/Creatinine Ratio Glucose POC Glucose (mg/dL) Lactic Acid 1.1 Calcium Magnesium Total Bilirubin AST ALT Alkaline Phosphatase Troponin I C-Reactive Protein B-Natriuretic Peptide 136 H Total Protein Albumin Globulin Albumin/Globulin Ratio Urine Color Urine Appearance Urine pH Ur Specific [place] Urine Protein Urine Ketones Urine Blood Urine Nitrate Urine Bilirubin Urine Urobilinogen Ur Leukocyte Esterase Urine WBC (Auto) Urine RBC (Auto) Ur Squamous Epith Cells Urine Bacteria Urine Glucose Urine Ascorbic Acid Influenza A (Rapid) Negative Influenza B (Rapid) Negative 12/21/19 12/21/19 12/21/19 05:10 05:27 05:27 WBC 9.6 RBC 4.21 Hgb 11.3 L Hct 34 L MCV 80 MCH 27 MCHC 33 RDW 16 H Plt Count 285 MPV 6.6 L Neut % (Auto) 80.3 Lymph % (Auto) 10.5 [place] % (Auto) 8.3 Eos % (Auto) 0.2 Baso % (Auto) 0.7 Absolute Neuts (auto) 7.7 Absolute Lymphs (auto) 1.0 Absolute Monos (auto) 0.8 Absolute Eos (auto) 0.0 Absolute Basos (auto) 0.1 Absolute Nucleated RBC 0.0 Nucleated RBC % 0.0 INR (Anticoag Therapy) Sodium 132 L Potassium 4.1 Chloride 100 L Carbon Dioxide 23 Anion Gap 9 BUN 18 Creatinine 1.17 Est GFR ( Amer) 72.0 Est GFR (Non-Af Amer) 59.5 BUN/Creatinine Ratio 15.4 Glucose 157 H POC Glucose (mg/dL) Lactic Acid Calcium 8.3 L Magnesium 1.3 L Total Bilirubin AST ALT Alkaline Phosphatase Troponin I C-Reactive Protein 161.38 H B-Natriuretic Peptide Total Protein Albumin Globulin Albumin/Globulin Ratio Urine Color Yellow Urine Appearance Clear Urine pH 6.0 Ur Specific [place] 1.041 H Urine Protein 2+(100 mg/dl) A Urine Ketones Negative Urine Blood Negative Urine Nitrate Negative Urine Bilirubin Negative Urine Urobilinogen Negative Ur Leukocyte Esterase Negative Urine WBC (Auto) Trace(0-5/hpf) Urine RBC (Auto) 1+(3-5/hpf) A Ur Squamous Epith Cells Present A Urine Bacteria 1+ A Urine Glucose Negative Urine Ascorbic Acid Not Reportable Influenza A (Rapid) Influenza B (Rapid) 12/21/19 12/21/19 12/21/19 11:43 17:03 20:36 WBC RBC Hgb Hct MCV MCH MCHC RDW Plt Count MPV Neut % (Auto) Lymph % (Auto) [place] % (Auto) Eos % (Auto) Baso % (Auto) Absolute Neuts (auto) Absolute Lymphs (auto) Absolute Monos (auto) Absolute Eos (auto) Absolute Basos (auto) Absolute Nucleated RBC Nucleated RBC % INR (Anticoag Therapy) Sodium Potassium Chloride Carbon Dioxide Anion Gap BUN Creatinine Est GFR ( Amer) Est GFR (Non-Af Amer) BUN/Creatinine Ratio Glucose POC Glucose (mg/dL) 239 H 150 H Lactic Acid 0.9 Calcium Magnesium Total Bilirubin AST ALT Alkaline Phosphatase Troponin I C-Reactive Protein B-Natriuretic Peptide Total Protein Albumin Globulin Albumin/Globulin Ratio Urine Color Urine Appearance Urine pH Ur Specific [place] Urine Protein Urine Ketones Urine Blood Urine Nitrate Urine Bilirubin Urine Urobilinogen Ur Leukocyte Esterase Urine WBC (Auto) Urine RBC (Auto) Ur Squamous Epith Cells Urine Bacteria Urine Glucose Urine Ascorbic Acid Influenza A (Rapid) Influenza B (Rapid) 12/21/19 12/22/19 12/22/19 21:00 04:11 07:38 WBC RBC Hgb Hct MCV MCH MCHC RDW Plt Count MPV Neut % (Auto) Lymph % (Auto) [place] % (Auto) Eos % (Auto) Baso % (Auto) Absolute Neuts (auto) Absolute Lymphs (auto) Absolute Monos (auto) Absolute Eos (auto) Absolute Basos (auto) Absolute Nucleated RBC Nucleated RBC % INR (Anticoag Therapy) Sodium 128 L Potassium 4.0 Chloride 98 L Carbon Dioxide 23 Anion Gap 7 BUN 18 Creatinine 1.16 Est GFR ( Amer) 72.8 Est GFR (Non-Af Amer) 60.1 BUN/Creatinine Ratio 15.5 Glucose 136 H POC Glucose (mg/dL) 176 H 149 H Lactic Acid Calcium 8.6 Magnesium 1.7 L Total Bilirubin AST ALT Alkaline Phosphatase Troponin I C-Reactive Protein B-Natriuretic Peptide Total Protein Albumin Globulin Albumin/Globulin Ratio Urine Color Urine Appearance Urine pH Ur Specific [place] Urine Protein Urine Ketones Urine Blood Urine Nitrate Urine Bilirubin Urine Urobilinogen Ur Leukocyte Esterase Urine WBC (Auto) Urine RBC (Auto) Ur Squamous Epith Cells Urine Bacteria Urine Glucose Urine Ascorbic Acid Influenza A (Rapid) Influenza B (Rapid) Assessment and Plan Impression: 84 yo M w newly diagnosed nonsmall cell lung cancer admitted with likely postobstructive PNA. I discussed Armen's diagnosis at length with him. I need to clarify what sampling he had a Granados (mass only vs. lymph node sampling). He will also need full staging with a PET/CT and brain MRI. We discussed that this can absolutely be done as an outpatient (and should be), and I would be happy to see him after discharge to arrange. We reviewed that his treatment plan will depend on his full staging work up. Please advise when he is ready for discharge so that we can arrange for follow up.
--- NOTE | 2019-12-22 13:49 | PN ---
Subjective Date of Service: 12/22/19 Interval History: Pt is still coughing up coughs amount of purulent sputum. Feels better. appetite is picking up. Seen with by the bedside Objective Active Medications: Acetaminophen (Tylenol Tab*) 650 mg PO Q4H PRN PRN Reason: PAIN - MILD Last Admin: 12/21/19 20:08 Dose: 650 mg Albuterol (Ventolin 2.5 Mg/3 Ml Neb.Shaina*) 2.5 mg INH Q4H PRN PRN Reason: SOB/WHEEZING Last Admin: 12/21/19 21:09 Dose: 2.5 mg Allopurinol (Zyloprim Tab*) 100 mg PO DAILY [facility] Last Admin: 12/22/19 08:40 Dose: 100 mg Amlodipine Besylate (Norvasc Tab*) 5 mg PO DAILY [facility] Last Admin: 12/22/19 08:41 Dose: 5 mg Apixaban (Eliquis*) 2.5 mg PO BID [facility] Last Admin: 12/22/19 08:40 Dose: 2.5 mg Atorvastatin Calcium (Lipitor*) 20 mg PO DAILY [facility] Last Admin: 12/22/19 08:39 Dose: 20 mg Dextrose (D50w Syringe 50 Ml*) 12.5 gm IV PUSH .FOR FS < 60 - SS PRN PRN Reason: FS < 60 Docusate Sodium (Colace Cap*) 100 mg PO BID [facility] Last Admin: 12/22/19 08:41 Dose: 100 mg Glipizide (Glucotrol Tab*) 5 mg PO DAILY [facility] Last Admin: 12/22/19 08:41 Dose: 5 mg Cefepime HCl (Maxipime 2 Gm In Dextrose Duplex (*)) 2 gm in 50 mls @ 100 mls/ hr IV Q12HR [facility] Last Admin: 12/22/19 08:41 Dose: 100 mls/hr Vancomycin HCl 1,000 mg/ (Sodium Chloride) 250 mls @ 166.667 mls/hr IV Q12H [facility] Insulin Human Lispro (Humalog*) 0 units SUBCUT ACHS [facility]; Protocol Last Admin: 12/22/19 12:57 Dose: 2 units Magnesium Oxide (Magox 400 Tab*) 800 mg PO DAILY [facility] Last Admin: 12/22/19 08:39 Dose: 800 mg Multivitamins/Minerals (Theragran/Minerals Tab*) 1 tab PO DAILY [facility] Last Admin: 12/22/19 08:40 Dose: 1 tab Ondansetron HCl (Zofran Inj*) 4 mg IV Q4H PRN PRN Reason: NAUSEA/VOMITING Pharmacy Consult (Vancomycin Per Pharmacy*) 1 note FOLLOW UP .VANC PER PHARMACY [facility]; Protocol Pharmacy Profile Note (Vancomycin Trough Check) 1 note FOLLOW UP 05 ONE Stop: 12/23/19 05:31 Oxygen Devices in Use Now: Nasal Cannula Appearance: 84 yo m in nAD, aAOx3 Eyes: No Scleral Icterus, PERRLA Ears/Nose/Mouth/Throat: NL Teeth, Lips, Gums, Mucous Membranes Moist Neck: NL Appearance and Movements; NL JVP, Trachea Midline Respiratory: Symmetrical Chest Expansion and Respiratory Effort, - - rhonchi at RUL, RML Cardiovascular: NL Sounds; No Murmurs; No JVD, RRR Abdominal: NL Sounds; No Tenderness; No Distention Lymphatic: No Cervical Adenopathy Extremities: No Clubbing, Cyanosis, - - mild R calf edema Skin: No Nodules or Sclerosis Neurological: Alert and Oriented x 3, NL Muscle Strength and Tone Result Diagrams: 12/21/19 05:27 12/22/19 04:11 Microbiology and Other Data: Microbiology 12/21/19 05:15 Gram Stain - Final Sputum Expectorated Assess/Plan/Problems-Billing Assessment: 84 yo m with h/o PAF(on Eliquis), DM2, RBBB, CAD(cath in 2014- occluded LAD with collaterals). DEACON on CPAP, HTN presents with fever , SOB cough , s/p bx of lung mass 12/15/19 - Patient Problems (1) Postobstructive pneumonia Comment: PNA complicated by acute hypoxemic resp failure. sputum cx pending, pt on Zosyn at admission, febrile after bronch and bx.on Switched to to Cefepime and Vanc 12/22/19. Still febrile last night. Cont tx, sputum cx pending (2) Lung mass Comment: got report from DR. Reed's office-pt had non small cell lung cancer Appreciate Dr. Heck consult As per Dr. Graves pt will be followed as outpatient CT abd /pelvis not showing any mets (3) Hypertension Comment: controled, cont Norvasc (4) DM2 (diabetes mellitus, type 2) Comment: cont glipizide and ISS (5) Atrial fibrillation Comment: h/o , cont Eliquis (6) Hyperkalemia Comment: h/o renal diet ordered (7) Hypomagnesemia Comment: replacing (8) DVT prophylaxis Comment: eliquis Status and Disposition: inpatient
[2019-12-22] MEDS: Acetaminophen TAB* 325 MG PO PRN (15:43)
[2019-12-22] MEDS: Vancomycin(*) 1,000 MG in NS 0.9% 250 ML* 250 ML IV SCH (17:35)
[2019-12-23 05:05] LABS: EGFR African American 61.1 (>60); EGFR Non-African American 50.5 (>60)
[2019-12-23 05:06] LABS: BUN/Creatinine Ratio 16.9 (8-20); Calcium 8.7 mg/dL (8.6-10.3); EGFR African American 60.6 (>60); Magnesium 2.1 mg/dL (1.9-2.7); Potassium 4.1 mmol/L (3.5-5.0)
[2019-12-23 05:11] LABS: Vancomycin Trough 17.4 mcg/mL
[2019-12-23] MEDS ORDERED: Vancomycin Trough Check NOTE FOLLOW UP ONE ×2 (05:30)
[2019-12-23] MEDS: Vancomycin(*) 1,000 MG in NS 0.9% 250 ML* 250 ML IV SCH ×2 (06:09→17:45)
[2019-12-23 06:50] LABS: BUN/Creatinine Ratio 16.3 (8-20); Calcium 8.8 mg/dL (8.6-10.3); EGFR African American 61.1 (>60); EGFR Non-African American 50.5 (>60); Potassium 4.1 mmol/L (3.5-5.0)
[2019-12-23] MEDS: Allopurinol TAB* 100 MG PO SCH (08:42)
[2019-12-23] MEDS: glipiZIDE TAB* 5 MG PO SCH (08:42)
[2019-12-23] MEDS: Multivitamins/Minerals TAB PO SCH (08:42)
[2019-12-23] MEDS: Docusate CAP* 100 MG PO SCH ×2 (08:42→22:52)
[2019-12-23] MEDS: Atorvastatin* 20 MG TAB PO SCH (08:42)
[2019-12-23] MEDS: amLODIPine TAB* 5 MG PO SCH (08:42)
[2019-12-23] MEDS: Magnesium Oxide TAB* 400 MG PO SCH (08:42)
[2019-12-23] MEDS: Apixaban* 2.5 MG TAB PO SCH ×2 (08:42→22:52)
[2019-12-23] MEDS: Insulin LISPRO* 1 UNITS UNIT SUBCUT SCH ×4 (08:44→23:05)
[2019-12-23] MEDS: Cefepime 2 GM in Dextrose(*) 2 GM/50 ML BAG IV SCH ×2 (08:44→22:52)
--- NOTE | 2019-12-23 11:26 | PN ---
Subjective Date of Service: 12/23/19 Interval History: Pt feels "a little better". Still coughing up phlegm. Had 9 beat of V.tach last night, asymptomatic. Feels very weak. Has not been walking x 3 days. and pt request PT Objective Active Medications: Acetaminophen (Tylenol Tab*) 650 mg PO Q4H PRN PRN Reason: PAIN - MILD Last Admin: 12/22/19 15:43 Dose: 650 mg Albuterol (Ventolin 2.5 Mg/3 Ml Neb.Shaina*) 2.5 mg INH Q4H PRN PRN Reason: SOB/WHEEZING Last Admin: 12/21/19 21:09 Dose: 2.5 mg Allopurinol (Zyloprim Tab*) 100 mg PO DAILY [facility] Last Admin: 12/23/19 08:42 Dose: 100 mg Amlodipine Besylate (Norvasc Tab*) 5 mg PO DAILY [facility] Last Admin: 12/23/19 08:42 Dose: 5 mg Apixaban (Eliquis*) 2.5 mg PO BID [facility] Last Admin: 12/23/19 08:42 Dose: 2.5 mg Atorvastatin Calcium (Lipitor*) 20 mg PO DAILY [facility] Last Admin: 12/23/19 08:42 Dose: 20 mg Dextrose (D50w Syringe 50 Ml*) 12.5 gm IV PUSH .FOR FS < 60 - SS PRN PRN Reason: FS < 60 Docusate Sodium (Colace Cap*) 100 mg PO BID [facility] Last Admin: 12/23/19 08:42 Dose: 100 mg Glipizide (Glucotrol Tab*) 5 mg PO DAILY [facility] Last Admin: 12/23/19 08:42 Dose: 5 mg Cefepime HCl (Maxipime 2 Gm In Dextrose Duplex (*)) 2 gm in 50 mls @ 100 mls/ hr IV Q12HR [facility] Last Admin: 12/23/19 08:44 Dose: 100 mls/hr Vancomycin HCl 1,000 mg/ (Sodium Chloride) 250 mls @ 166.667 mls/hr IV Q12H [facility] Last Admin: 12/23/19 06:09 Dose: 166.667 mls/hr Insulin Human Lispro (Humalog*) 0 units SUBCUT ACHS [facility]; Protocol Last Admin: 12/23/19 08:44 Dose: 2 units Magnesium Oxide (Magox 400 Tab*) 800 mg PO DAILY [facility] Last Admin: 12/23/19 08:42 Dose: 800 mg Multivitamins/Minerals (Theragran/Minerals Tab*) 1 tab PO DAILY [facility] Last Admin: 12/23/19 08:42 Dose: 1 tab Ondansetron HCl (Zofran Inj*) 4 mg IV Q4H PRN PRN Reason: NAUSEA/VOMITING Pharmacy Consult (Vancomycin Per Pharmacy*) 1 note FOLLOW UP .VANC PER PHARMACY [facility]; Protocol Vital Signs - 8 hr 12/23/19 12/23/19 12/23/19 04:23 07:18 07:30 Temperature 99.4 F Pulse Rate 80 88 Respiratory 20 18 18 Rate Blood Pressure 137/93 (mmHg) O2 Sat by Pulse 95 96 Oximetry 12/23/19 11:02 Temperature 99.6 F Pulse Rate 81 Respiratory 19 Rate Blood Pressure 94/61 (mmHg) O2 Sat by Pulse 95 Oximetry Oxygen Devices in Use Now: Nasal Cannula Appearance: 84 yo m in nAD, aAOx3 Eyes: No Scleral Icterus, PERRLA Ears/Nose/Mouth/Throat: NL Teeth, Lips, Gums, Mucous Membranes Moist Neck: NL Appearance and Movements; NL JVP, Trachea Midline Respiratory: Symmetrical Chest Expansion and Respiratory Effort, - - rhonchi at RUL, diffuse b/l mid lung wheezes Cardiovascular: NL Sounds; No Murmurs; No JVD, RRR Abdominal: NL Sounds; No Tenderness; No Distention, No Hepatosplenomegaly Lymphatic: No Cervical Adenopathy Extremities: No Clubbing, Cyanosis, - - trace pedal edema b/l Skin: No Rash or Ulcers, No Nodules or Sclerosis Neurological: Alert and Oriented x 3, NL Muscle Strength and Tone Result Diagrams: 12/21/19 05:27 12/23/19 05:59 Microbiology and Other Data: Microbiology 12/21/19 05:15 Gram Stain - Final Sputum Expectorated Assess/Plan/Problems-Billing Assessment: 84 yo m with h/o PAF(on Eliquis), DM2, RBBB, CAD(cath in 2014- occluded LAD with collaterals). DEACON on CPAP, HTN presents with fever , SOB cough , s/p bx of lung mass 12/15/19 - Patient Problems (1) Postobstructive pneumonia Comment: PNA complicated by acute hypoxemic resp failure.pt's fever developed at home after bronch and bx.on 12/15/19 sputum cx pending, pt was placed on Zosyn at admission, Switched to to Cefepime and Vanc 12/22/19. Temp 99.9 last night . Cont tx, sputum cx pending (2) Lung mass Comment: got report from DR. Reed's office-pt had non small cell lung cancer Appreciate Dr. Heck consult As per Dr. Graves pt will be followed as outpatient CT abd /pelvis not showing any mets (3) Hypertension Comment: controled, cont Norvasc (4) DM2 (diabetes mellitus, type 2) Comment: cont glipizide and ISS (5) Atrial fibrillation Comment: h/o , cont Eliquis (6) Hyperkalemia Comment: h/o renal diet ordered (7) Hypomagnesemia Comment: replacing (8) Bronchospasm Comment: today pt has significant b/l lung wheezes. Suspect pt has underlying COPD. will start Prednisone 50 mg daily for exacerbation of COPD (9) CKD (chronic kidney disease) stage 3, GFR 30-59 ml/min Comment: likely due to DM Creat at baseline (10) DVT prophylaxis Comment: eliquis Status and Disposition: inpatient
[2019-12-24] MEDS ORDERED: Insulin LISPRO* 1 UNITS UNIT SUBCUT ONE ×5 (01:58→21:33)
[2019-12-24] MEDS ORDERED: Dextrose 50% Syringe 50 ML* 25 GM/50 ML SYRINGE IV PUSH PRN ×3 (01:58→21:28)
[2019-12-24] MEDS: Vancomycin(*) 1,000 MG in NS 0.9% 250 ML* 250 ML IV SCH ×2 (05:30→17:39)
--- NOTE | 2019-12-24 08:24 | PN ---
Subjective Date of Service: 12/24/19 Interval History: Slept well last night slept in room in chair productive cough, breathing better walked down [place] yesterday and to bathroom and back today with less SOB Objective Active Medications: Acetaminophen (Tylenol Tab*) 650 mg PO Q4H PRN PRN Reason: PAIN - MILD Last Admin: 12/22/19 15:43 Dose: 650 mg Albuterol (Ventolin 2.5 Mg/3 Ml Neb.Shaina*) 2.5 mg INH Q4H PRN PRN Reason: SOB/WHEEZING Last Admin: 12/21/19 21:09 Dose: 2.5 mg Allopurinol (Zyloprim Tab*) 100 mg PO DAILY [facility] Last Admin: 12/23/19 08:42 Dose: 100 mg Amlodipine Besylate (Norvasc Tab*) 5 mg PO DAILY [facility] Last Admin: 12/23/19 08:42 Dose: 5 mg Apixaban (Eliquis*) 2.5 mg PO BID [facility] Last Admin: 12/23/19 22:52 Dose: 2.5 mg Atorvastatin Calcium (Lipitor*) 20 mg PO DAILY [facility] Last Admin: 12/23/19 08:42 Dose: 20 mg Dextrose (D50w Syringe 50 Ml*) 12.5 gm IV PUSH .FOR FS < 60 - SS PRN PRN Reason: FS < 60 Docusate Sodium (Colace Cap*) 100 mg PO BID [facility] Last Admin: 12/23/19 22:52 Dose: 100 mg Glipizide (Glucotrol Tab*) 5 mg PO DAILY [facility] Last Admin: 12/23/19 08:42 Dose: 5 mg Cefepime HCl (Maxipime 2 Gm In Dextrose Duplex (*)) 2 gm in 50 mls @ 100 mls/ hr IV Q12HR [facility] Last Admin: 12/23/19 22:52 Dose: 100 mls/hr Vancomycin HCl 1,000 mg/ (Sodium Chloride) 250 mls @ 166.667 mls/hr IV Q12H [facility] Last Admin: 12/24/19 05:30 Dose: 166.667 mls/hr Insulin Human Lispro (Humalog*) 0 units SUBCUT ACHS [facility]; Protocol Last Admin: 12/23/19 23:05 Dose: 12 units Magnesium Oxide (Magox 400 Tab*) 800 mg PO DAILY [facility] Last Admin: 12/23/19 08:42 Dose: 800 mg Multivitamins/Minerals (Theragran/Minerals Tab*) 1 tab PO DAILY [facility] Last Admin: 12/23/19 08:42 Dose: 1 tab Ondansetron HCl (Zofran Inj*) 4 mg IV Q4H PRN PRN Reason: NAUSEA/VOMITING Pharmacy Consult (Vancomycin Per Pharmacy*) 1 note FOLLOW UP .VANC PER PHARMACY [facility]; Protocol Prednisone (Deltasone 50 Mg Tab) 50 mg PO DAILY [facility] Last Admin: 12/23/19 14:05 Dose: 50 mg Vital Signs - 8 hr 12/24/19 12/24/19 01:02 02:59 Temperature 97.7 F Pulse Rate 84 77 Respiratory 16 16 Rate Blood Pressure 154/70 (mmHg) O2 Sat by Pulse 99 92 Oximetry Oxygen Devices in Use Now: Nasal Cannula Appearance: sitting on edge of bed, interactive nad Eyes: No Scleral Icterus, PERRLA Ears/Nose/Mouth/Throat: Clear Oropharnyx, Mucous Membranes Moist Neck: NL Appearance and Movements; NL JVP, Trachea Midline Respiratory: Symmetrical Chest Expansion and Respiratory Effort, - - trace end expiratory wheeze mostly in bases Cardiovascular: RRR, - - 2/6 EBENEZER loudest RUSB Abdominal: NL Sounds; No Tenderness; No Distention, No Hepatosplenomegaly Lymphatic: No Cervical Adenopathy Extremities: No Edema Skin: No Rash or Ulcers Neurological: Alert and Oriented x 3 Result Diagrams: 12/21/19 05:27 12/23/19 05:59 Microbiology and Other Data: Microbiology 12/21/19 05:15 Gram Stain - Final Sputum Expectorated Assess/Plan/Problems-Billing Assessment: 84 yo m with h/o PAF (on Eliquis), DM2, RBBB, CAD (cath in 2015-occluded LAD with collaterals), DEACON on CPAP, HTN presents with fever , SOB, cough s/p biopsy of lung mass 12/15/19 admitted with post obstructive PNA, biopsy confirmed NSLC - Patient Problems (1) Postobstructive pneumonia Comment: PNA complicated by acute hypoxemic resp failure pt was placed on Zosyn at admission and switched to Cefepime and Vanc 12/22/19. last fever 12/20 (2) Lung mass Comment: report from Dr. Reed's office-pt with non small cell lung cancer Appreciate pulm and onc consults As per Dr. Graevs pt will be followed as outpatient CT abd /pelvis not showing any mets (3) Atrial fibrillation Comment: in NSR c/w Eliquis (4) Bronchospasm Code(s): J98.01 - ACUTE BRONCHOSPASM SNOMED Code(s): 3182771 Comment: reports h/o COPD started on PO steroids with improvement in wheezing (5) Hypertension Comment: c/w Norvasc (6) DVT prophylaxis Comment: eliquis Status and Disposition: inpatient
[2019-12-24] MEDS: Magnesium Oxide TAB* 400 MG PO SCH (08:27)
[2019-12-24] MEDS: Apixaban* 2.5 MG TAB PO SCH ×2 (08:27→20:07)
[2019-12-24] MEDS: Multivitamins/Minerals TAB PO SCH (08:27)
[2019-12-24] MEDS: Docusate CAP* 100 MG PO SCH ×2 (08:27→20:07)
[2019-12-24] MEDS: amLODIPine TAB* 5 MG PO SCH (08:27)
[2019-12-24] MEDS: Atorvastatin* 20 MG TAB PO SCH (08:27)
[2019-12-24] MEDS: Cefepime 2 GM in Dextrose(*) 2 GM/50 ML BAG IV SCH ×2 (08:27→21:12)
[2019-12-24] MEDS: glipiZIDE TAB* 5 MG PO SCH (08:27)
[2019-12-24] MEDS: Allopurinol TAB* 100 MG PO SCH (08:27)
[2019-12-24] MEDS: Insulin LISPRO* 1 UNITS UNIT SUBCUT SCH ×4 (08:28→21:01)
[2019-12-24] MEDS: Insulin GLARGINE(*) 1 UNITS UNIT SUBCUT SCH (20:07)
[2019-12-25] MEDS: Vancomycin(*) 1,000 MG in NS 0.9% 250 ML* 250 ML IV SCH ×2 (06:00→18:30)
[2019-12-25] MEDS: Magnesium Oxide TAB* 400 MG PO SCH (07:36)
[2019-12-25] MEDS: glipiZIDE TAB* 5 MG PO SCH (07:37)
[2019-12-25] MEDS: Docusate CAP* 100 MG PO SCH ×2 (07:37→20:58)
[2019-12-25] MEDS: Allopurinol TAB* 100 MG PO SCH (07:37)
[2019-12-25] MEDS: Atorvastatin* 20 MG TAB PO SCH (07:37)
[2019-12-25] MEDS: Apixaban* 2.5 MG TAB PO SCH ×2 (07:38→20:58)
[2019-12-25] MEDS: Multivitamins/Minerals TAB PO SCH (07:38)
[2019-12-25] MEDS: amLODIPine TAB* 5 MG PO SCH (07:38)
[2019-12-25] MEDS: Insulin LISPRO* 1 UNITS UNIT SUBCUT SCH ×4 (09:37→20:58)
[2019-12-25] MEDS: Cefepime 2 GM in Dextrose(*) 2 GM/50 ML BAG IV SCH ×2 (09:37→20:58)
[2019-12-25] MEDS: Albuterol 2.5 MG/3 ML NEB.SOL* (0.083%) INH PRN (12:33)
--- NOTE | 2019-12-25 16:11 | PN ---
Subjective Date of Service: 12/25/19 Interval History: walking more today still cough SOB better Objective Active Medications: Acetaminophen (Tylenol Tab*) 650 mg PO Q4H PRN PRN Reason: PAIN - MILD Last Admin: 12/22/19 15:43 Dose: 650 mg Albuterol (Ventolin 2.5 Mg/3 Ml Neb.Shaina*) 2.5 mg INH Q4H PRN PRN Reason: SOB/WHEEZING Last Admin: 12/25/19 12:33 Dose: 2.5 mg Allopurinol (Zyloprim Tab*) 100 mg PO DAILY [facility] Last Admin: 12/25/19 07:37 Dose: 100 mg Amlodipine Besylate (Norvasc Tab*) 5 mg PO DAILY [facility] Last Admin: 12/25/19 07:38 Dose: 5 mg Apixaban (Eliquis*) 2.5 mg PO BID [facility] Last Admin: 12/25/19 07:38 Dose: 2.5 mg Atorvastatin Calcium (Lipitor*) 20 mg PO DAILY [facility] Last Admin: 12/25/19 07:37 Dose: 20 mg Dextrose (D50w Syringe 50 Ml*) 12.5 gm IV PUSH .FOR FS < 60 - SS PRN PRN Reason: FS < 60 Docusate Sodium (Colace Cap*) 100 mg PO BID [facility] Last Admin: 12/25/19 07:37 Dose: 100 mg Glipizide (Glucotrol Tab*) 5 mg PO DAILY [facility] Last Admin: 12/25/19 07:37 Dose: 5 mg Cefepime HCl (Maxipime 2 Gm In Dextrose Duplex (*)) 2 gm in 50 mls @ 100 mls/ hr IV Q12HR [facility] Last Admin: 12/25/19 09:37 Dose: 100 mls/hr Vancomycin HCl 1,000 mg/ (Sodium Chloride) 250 mls @ 166.667 mls/hr IV Q12H [facility] Last Admin: 12/25/19 06:00 Dose: 166.667 mls/hr Insulin Glargine (Lantus(*)) 5 units SUBCUT Q24H [facility] Last Admin: 12/24/19 20:07 Dose: 5 units Insulin Human Lispro (Humalog*) 0 units SUBCUT ACHS [facility]; Protocol Last Admin: 12/25/19 12:54 Dose: 4 units Magnesium Oxide (Magox 400 Tab*) 800 mg PO DAILY [facility] Last Admin: 12/25/19 07:36 Dose: 800 mg Multivitamins/Minerals (Theragran/Minerals Tab*) 1 tab PO DAILY [facility] Last Admin: 12/25/19 07:38 Dose: 1 tab Ondansetron HCl (Zofran Inj*) 4 mg IV Q4H PRN PRN Reason: NAUSEA/VOMITING Pharmacy Consult (Vancomycin Per Pharmacy*) 1 note FOLLOW UP .VANC PER PHARMACY [facility]; Protocol Prednisone (Deltasone 50 Mg Tab) 50 mg PO DAILY [facility] Last Admin: 12/25/19 07:37 Dose: 50 mg Vital Signs - 8 hr 12/25/19 12/25/19 11:15 12:34 Temperature 97.2 F Pulse Rate 70 73 Respiratory 20 18 Rate Blood Pressure 143/71 (mmHg) O2 Sat by Pulse 94 93 Oximetry Oxygen Devices in Use Now: None Appearance: NAD Eyes: No Scleral Icterus, PERRLA Ears/Nose/Mouth/Throat: NL Teeth, Lips, Gums, Clear Oropharnyx Neck: NL Appearance and Movements; NL JVP Respiratory: Symmetrical Chest Expansion and Respiratory Effort, Clear to Auscultation Cardiovascular: RRR Abdominal: NL Sounds; No Tenderness; No Distention Lymphatic: No Cervical Adenopathy Extremities: No Edema Neurological: Alert and Oriented x 3 Result Diagrams: 12/21/19 05:27 12/23/19 05:59 Microbiology and Other Data: Microbiology 12/21/19 05:15 Gram Stain - Final Sputum Expectorated Assess/Plan/Problems-Billing Assessment: 84 yo m with h/o PAF (on Eliquis), DM2, RBBB, CAD (cath in 2014-occluded LAD with collaterals), DEACON on CPAP, HTN presents with fever , SOB, cough s/p biopsy of lung mass 12/15/19 admitted with post obstructive PNA, biopsy confirmed NSLC - Patient Problems (1) Postobstructive pneumonia Comment: PNA complicated by acute hypoxemic resp failure pt was placed on Zosyn at admission and switched to Cefepime and Vanc 12/22/19. last fever 12/20 (2) Lung mass Comment: report from Dr. Reed's office-pt with non small cell lung cancer Appreciate pulm and onc consults As per Dr. Graves pt will be followed as outpatient CT abd /pelvis not showing any mets (3) Atrial fibrillation Comment: in NSR c/w Eliquis (4) Bronchospasm Code(s): J98.01 - ACUTE BRONCHOSPASM SNOMED Code(s): 3126458 Comment: reports h/o COPD started on PO steroids with improvement in wheezing (5) Hypertension Comment: c/w Norvasc (6) DVT prophylaxis Comment: eliquis Status and Disposition: inpatient for IV abx. Hopefully home in 1-2 days
[2019-12-25] MEDS: Insulin GLARGINE(*) 1 UNITS UNIT SUBCUT SCH (20:58)
[2019-12-26 06:04] LABS: ABS Lymphocytes 0.7 10^3/ul (1.0-4.8); ABS Neutrophils 8.8 10^3/ul (1.5-7.7); Eosinophil % 0.3 %; Hematocrit 35 % (42-52); Hemoglobin 11.5 g/dL (14.0-18.0); Lymphocyte % 6.8 %; Mean Corpuscular HGB Conc 33 g/dL (31-36); Mean Corpuscular Hemoglobin 26 pg (27-31); Mean Corpuscular Volume 79 fL (80-94); Mean Platelet Volume 6.7 fL (7.4-10.4); Platelet Count 423 10^3/uL (150-450); Red Blood Count 4.41 10^6 /uL (4.18-5.48); Red Cell Distribution Width 17 % (10-15); White Blood Count 10.6 10^3/uL (3.5-10.8)
[2019-12-26 06:22] LABS: BUN/Creatinine Ratio 26.5 (8-20); Calcium 9.6 mg/dL (8.6-10.3); EGFR Non-African American 59.5 (>60); Potassium 4.2 mmol/L (3.5-5.0)
[2019-12-26] MEDS: Vancomycin(*) 1,000 MG in NS 0.9% 250 ML* 250 ML IV SCH (06:29)
[2019-12-26 06:34] LABS: Vancomycin Trough 22.8 mcg/mL
[2019-12-26] MEDS: glipiZIDE TAB* 5 MG PO SCH (10:22)
[2019-12-26] MEDS: Magnesium Oxide TAB* 400 MG PO SCH (10:22)
[2019-12-26] MEDS: Allopurinol TAB* 100 MG PO SCH (10:22)
[2019-12-26] MEDS: amLODIPine TAB* 5 MG PO SCH (10:23)
[2019-12-26] MEDS: Multivitamins/Minerals TAB PO SCH (10:23)
[2019-12-26] MEDS: Atorvastatin* 20 MG TAB PO SCH (10:23)
[2019-12-26] MEDS: Apixaban* 2.5 MG TAB PO SCH (10:23)
[2019-12-26] MEDS: Docusate CAP* 100 MG PO SCH (10:24)
[2019-12-26] MEDS: Cefepime 2 GM in Dextrose(*) 2 GM/50 ML BAG IV SCH (10:26)
[2019-12-26] MEDS: Insulin LISPRO* 1 UNITS UNIT SUBCUT SCH ×2 (10:27→12:37)
[2019-12-26 11:55] VITALS: BP 150/57
[2019-12-26] MEDS ORDERED: Vancomycin(*) 750 MG in NS 0.9% 250 ML* 250 ML IVPB SCH (19:00)
--- NOTE | 2019-12-26 20:52 | DS ---
CC: Dr. Pineda * DISCHARGE SUMMARY: DATE OF ADMISSION: 12/21/19 DATE OF DISCHARGE: 12/26/19 PRIMARY CARE PROVIDER: Dr. Pineda. PRIMARY DIAGNOSES: 1. Postobstructive pneumonia. 2. Hypoxic respiratory failure. SECONDARY DIAGNOSES: 1. Non-small cell lung cancer, recently diagnosed. 2. Atrial fibrillation. 3. Bronchospasm. 4. Hypertension. 5. History of cerebrovascular accident. MEDICATIONS AT DISCHARGE: Include: 1. Glipizide 5 mg daily. 2. Amlodipine 5 mg daily. 3. Simvastatin 40 mg daily. 4. Multivitamin 1 cap daily. 5. Apixaban 2.5 mg twice daily. 6. Allopurinol 100 mg daily. 7. Metformin 850 mg daily. 8. Doxycycline 100 mg twice daily. 9. Cefpodoxime 200 mg twice daily, to complete course of antibiotics. Also please note addition of metformin to his current home medications. HISTORY OF PRESENT ILLNESS AND HOSPITAL COURSE: This is an 84-year-old man with past medical history as outlined in the history of presenting illness on the day of admission, presented to the hospital with increasing weakness, fever , and cough associated with chest pain on deep breathing. He recently underwent a lung biopsy positive for non-small cell lung cancer, was noted to have what appeared to be a postobstructive pneumonia complicated by hypoxic respiratory failure. He was placed on Zosyn on admission, but did have a fever after placed on Zosyn, was switched cefepime and vancomycin on 12/22/19; however , transitioned to oral antibiotics at the time of discharge. He remained fever- free since 12/21/19. He had no leukocytosis. He did suffer mild kidney injury. Creatinine peaked at 1.36, decreased to 1.17 prior to discharge. His influenza A and B were negative. He was back on room air, walking multiple times around the unit prior to his discharge. He was seen in the hospital by Oncology and is to follow up with Dr. Graves on discharge. He was thought to have significant wheezing consistent with bronchospasm prior to discharge. He was started on steroids with some improvement. No steroids will be continued on discharge. There are no complications during this hospital stay. Reasons to return to the hospital including, but not limited to recurrent or worsening symptoms including worsening cough, shortness of breath, fevers, chills, night sweats, bleeding from any source, loss of consciousness or near loss of consciousness, chest pain, inability to obtain or tolerate medications were discussed with the patient. He acknowledged understanding. TIME SPENT: Greater than 45 minutes was spent on the discharge of this patient , greater than half was spent [id number] with the patient. [id number]/[facility] #: [id number] HE
[2019-12-28] MEDS ORDERED: Vancomycin Trough Check NOTE FOLLOW UP ONE (06:30)
== END 2019-12-26 14:00 | disposition home or self-care (01) | DRG 193 ==
LOC: ED 19:26 → MED 23:55
PROVIDERS: ADMIT Family Medicine; ATTEND Internal Medicine
DX: J18.8 Other pneumonia, unspecified organism (principal); J96.01 Acute respiratory failure with hypoxia; C34.11 Malignant neoplasm of upper lobe, right bronchus or lung; J98.11 Atelectasis; E87.1 Hypo-osmolality and hyponatremia; I47.2 Ventricular tachycardia; J44.0 Chronic obstructive pulmonary disease with (acute) lower respiratory infection; G47.33 Obstructive sleep apnea (adult) (pediatric); I48.0 Paroxysmal atrial fibrillation; I45.10 Unspecified right bundle-branch block; I25.10 Atherosclerotic heart disease of native coronary artery without angina pectoris; E87.5 Hyperkalemia; E83.42 Hypomagnesemia; N18.3 Chronic kidney disease, stage 3 (moderate); E11.22 Type 2 diabetes mellitus with diabetic chronic kidney disease; I12.9 Hypertensive chronic kidney disease with stage 1 through stage 4 chronic kidney disease, or unspecified chronic kidney disease; J98.01 Acute bronchospasm; E78.00 Pure hypercholesterolemia, unspecified; M19.90 Unspecified osteoarthritis, unspecified site; M10.9 Gout, unspecified; E86.0 Dehydration; E78.5 Hyperlipidemia, unspecified; Z79.899 Other long term (current) drug therapy; Z87.891 Personal history of nicotine dependence; Z86.73 Personal history of transient ischemic attack (TIA), and cerebral infarction without residual deficits; Z85.828 Personal history of other malignant neoplasm of skin; Z79.84 Long term (current) use of oral hypoglycemic drugs; Z79.01 Long term (current) use of anticoagulants
CPT/HCPCS: 36415; 71046; 71260; 74177; 80048; 80053; 80202; 81003; 81015; 82565; 82947; 83036; 83605; 83735; 83880; 84484; 84520; 85025; 85610; 86140; 87040; 87070; 87086; 87205; 94640; 94660; 99284; A9270-GY; J0692; J1815; J2543; J3370; J3475; J7512; Q9967

== ENCOUNTER 2020-03-07 08:16 | Inpatient (IN) ==
[2020-03-07] MEDS ORDERED: Lidocaine 2% PF 5 ML VIAL ONE (08:46)
[2020-03-07 08:51] LABS: ABS Basophils 0.1 10^3/ul (0-0.2); ABS Lymphocytes 0.5 10^3/ul (1.0-4.8); ABS Monocytes 0.5 10^3/ul (0-0.8); Eosinophil % 0.5 %; Hematocrit 27 % (42-52); Hemoglobin 8.9 g/dL (14.0-18.0); Lymphocyte % 6.8 %; Mean Corpuscular HGB Conc 33 g/dL (31-36); Mean Corpuscular Hemoglobin 27 pg (27-31); Mean Corpuscular Volume 80 fL (80-94); Nucleated Red Blood Cells % 0.2; Platelet Count 262 10^3/uL (150-450); Red Blood Count 3.33 10^6 /uL (4.18-5.48); Red Cell Distribution Width 23 % (10-15); White Blood Count 7.5 10^3/uL (3.5-10.8)
[2020-03-07 08:56] LABS: Albumin 2.5 g/dL (3.2-5.2); Albumin/Globulin Ratio 0.7 (1-3); BUN/Creatinine Ratio 22.8 (8-20); Calcium 8.9 mg/dL (8.6-10.3); EGFR African American 74.2 (>60); EGFR Non-African American 61.3 (>60); Globulin 3.8 g/dL (2-4); Magnesium 1.6 mg/dL (1.9-2.7); Potassium 4.3 mmol/L (3.5-5.0); Total Bilirubin 0.4 mg/dL (0.2-1.0); Total Protein 6.3 g/dL (6.4-8.9)
[2020-03-07] MEDS ORDERED: Magnesium Sulfate 2 gm BAG 2 GM/50 ML BAG IVPB ONE (09:38)
[2020-03-07] MEDS ORDERED: Piperacillin/Tazobac ADVAN(*) 3.375 GM in NS 0.9% 100 ml BAG 100 ML IVPB ONE (09:38)
[2020-03-07] MEDS ORDERED: Ondansetron 4 mg VIAL 2 MG/ML 2 ml VIAL IV PRN (09:38)
[2020-03-07] MEDS ORDERED: Zosyn per Pharmacy NOTE FOLLOW UP SCH (10:00)
[2020-03-07] MEDS: NS 0.9% 1000 ml BAG 1,000 ML IV SCH (12:17)
[2020-03-07] MEDS ORDERED: Iodixanol (CONTRAST) 320 MG/ML 100 ML SDV IV ONE (12:45)
[2020-03-07] MEDS: Nystatin SUSPENSION 100,000 UNITS/ML UDC PO SCH ×3 (15:13→22:50)
[2020-03-07 16:37] LABS: C Reactive Protein 232.97 mg/L (<8.01)
[2020-03-07 17:09] LABS: Vitamin D Total 25(OH) 42.5 ng/mL (20-50)
[2020-03-07] MEDS: ZOSYN 3.375 GM Q8H per EXTENDED INFUSION IV SCH (20:00)
[2020-03-08] MEDS: ZOSYN 3.375 GM Q8H per EXTENDED INFUSION IV SCH ×3 (03:05→19:05)
[2020-03-08 06:19] LABS: ABS Basophils 0.1 10^3/ul (0-0.2); ABS Eosinophils 0.1 10^3/ul (0-0.6); ABS Lymphocytes 0.3 10^3/ul (1.0-4.8); ABS Monocytes 0.4 10^3/ul (0-0.8); Eosinophil % 0.8 %; Hematocrit 23 % (42-52); Hemoglobin 7.6 g/dL (14.0-18.0); Lymphocyte % 3.6 %; Mean Corpuscular HGB Conc 33 g/dL (31-36); Mean Corpuscular Hemoglobin 27 pg (27-31); Mean Corpuscular Volume 81 fL (80-94); Mean Platelet Volume 7.2 fL (7.4-10.4); Nucleated Red Blood Cells % 0.2; Platelet Count 235 10^3/uL (150-450); Red Blood Count 2.83 10^6 /uL (4.18-5.48); Red Cell Distribution Width 23 % (10-15); White Blood Count 8.6 10^3/uL (3.5-10.8)
[2020-03-08 06:49] LABS: Albumin 2.2 g/dL (3.2-5.2); Albumin/Globulin Ratio 0.7 (1-3); BUN/Creatinine Ratio 18.8 (8-20); Calcium 8.3 mg/dL (8.6-10.3); EGFR African American 75.8 (>60); EGFR Non-African American 62.6 (>60); Globulin 3.2 g/dL (2-4); Magnesium 1.7 mg/dL (1.9-2.7); Potassium 4.1 mmol/L (3.5-5.0); Total Bilirubin 0.3 mg/dL (0.2-1.0); Total Protein 5.4 g/dL (6.4-8.9)
[2020-03-08] MEDS: NS 0.9% 1000 ml BAG 1,000 ML IV SCH (08:51)
[2020-03-08] MEDS: Nystatin SUSPENSION 100,000 UNITS/ML UDC PO SCH ×4 (10:46→22:03)
[2020-03-08] MEDS: Albuterol 2.5mg/3 ml (0.083%) NEB.SOLN INH PRN (17:30)
[2020-03-08] MEDS ORDERED: Vancomycin(*) 1,500 MG in NS 0.9% 250 ml 250 ML IVPB ONE (20:00)
[2020-03-08 20:29] LABS: Hematocrit 27 % (42-52); Hemoglobin 8.9 g/dL (14.0-18.0); Mean Corpuscular HGB Conc 33 g/dL (31-36); Mean Corpuscular Hemoglobin 28 pg (27-31); Mean Corpuscular Volume 83 fL (80-94); Mean Platelet Volume 7.2 fL (7.4-10.4); Platelet Count 255 10^3/uL (150-450); Red Blood Count 3.25 10^6 /uL (4.18-5.48); Red Cell Distribution Width 23 % (10-15); White Blood Count 9.6 10^3/uL (3.5-10.8)
[2020-03-08 20:30] LABS: ABS Eosinophils 0.1 10^3/ul (0-0.6); ABS Lymphocytes 0.2 10^3/ul (1.0-4.8); ABS Monocytes 0.5 10^3/ul (0-0.8); Eosinophil % 0.6 %; Nucleated Red Blood Cells % 0.1
[2020-03-08 20:47] LABS: ALT 41 U/L (7-52); AST 36 U/L (13-39); Albumin 2.3 g/dL (3.2-5.2); Albumin/Globulin Ratio 0.7 (1-3); Alkaline Phosphatase 197 U/L (34-104); Anion Gap 6 mmol/L (2-11); BUN/Creatinine Ratio 18.4 (8-20); Blood Urea Nitrogen 19 mg/dL (6-24); C Reactive Protein 220.12 mg/L (<8.01); CO2 Carbon Dioxide 27 mmol/L (22-32); Calcium 8.4 mg/dL (8.6-10.3); Chloride 98 mmol/L (101-111); EGFR African American 83.5 (>60); Globulin 3.5 g/dL (2-4); Glucose 183 mg/dL (70-100); Potassium 4.1 mmol/L (3.5-5.0); Sodium 131 mmol/L (135-145); Total Protein 5.8 g/dL (6.4-8.9)
[2020-03-08 20:58] LABS: Troponin I 0.03 ng/mL (<0.03)
[2020-03-09] MEDS ORDERED: Vancomycin per Pharmacy 1 EA NOTE FOLLOW UP PRN (01:56)
[2020-03-09] MEDS: ZOSYN 3.375 GM Q8H per EXTENDED INFUSION IV SCH (02:36)
[2020-03-09 05:47] LABS: ABS Eosinophils 0.1 10^3/ul (0-0.6); ABS Lymphocytes 0.3 10^3/ul (1.0-4.8); ABS Monocytes 0.4 10^3/ul (0-0.8); Hematocrit 25 % (42-52); Hemoglobin 8.6 g/dL (14.0-18.0); Lymphocyte % 3.1 %; Mean Corpuscular HGB Conc 34 g/dL (31-36); Mean Corpuscular Hemoglobin 28 pg (27-31); Mean Corpuscular Volume 82 fL (80-94); Mean Platelet Volume 7.2 fL (7.4-10.4); Nucleated Red Blood Cells % 0.2; Platelet Count 222 10^3/uL (150-450); Red Blood Count 3.03 10^6 /uL (4.18-5.48); Red Cell Distribution Width 22 % (10-15); White Blood Count 9.8 10^3/uL (3.5-10.8)
[2020-03-09 06:10] LABS: Albumin 2.1 g/dL (3.2-5.2); Albumin/Globulin Ratio 0.7 (1-3); BUN/Creatinine Ratio 18.1 (8-20); Calcium 8.3 mg/dL (8.6-10.3); EGFR African American 92.7 (>60); EGFR Non-African American 76.6 (>60); Globulin 3.2 g/dL (2-4); Total Bilirubin 0.4 mg/dL (0.2-1.0); Total Protein 5.3 g/dL (6.4-8.9)
[2020-03-09] MEDS: Nystatin SUSPENSION 100,000 UNITS/ML UDC PO SCH ×4 (08:51→20:38)
[2020-03-09] MEDS ORDERED: Vancomycin per Pharmacy 1 EA NOTE FOLLOW UP SCH (10:00)
[2020-03-09] MEDS: Cefepime 2 GM in Dextrose(*) 2 GM/50 ML BAG IV SCH ×2 (10:52→20:38)
[2020-03-09] MEDS: Vancomycin(*) 1,000 MG in NS 0.9% 250 ml 250 ML IV SCH ×2 (11:40→23:04)
[2020-03-09] MEDS: Albuterol 2.5mg/3 ml (0.083%) NEB.SOLN INH PRN ×3 (11:53→20:32)
[2020-03-09] MEDS ORDERED: Vancomycin(*) 1,000 MG in NS 0.9% 250 ml 250 ML IV SCH (12:00)
[2020-03-09 13:34] LABS: Troponin I 0.04 ng/mL (<0.03)
[2020-03-09 19:35] LABS: Troponin I 0.03 ng/mL (<0.03)
[2020-03-09 20:17] LABS: Troponin I 0.04 ng/mL (<0.03)
[2020-03-09] MEDS: Acetylcysteine INH SOL (RT) 200 MG/ML 4 ML VIAL INH PRN (20:31)
[2020-03-10 01:03] LABS: Troponin I 0.01 ng/mL (<0.03)
[2020-03-10 04:36] LABS: ABS Eosinophils 0.1 10^3/ul (0-0.6); ABS Lymphocytes 0.3 10^3/ul (1.0-4.8); ABS Monocytes 0.5 10^3/ul (0-0.8); Eosinophil % 0.9 %; Hematocrit 27 % (42-52); Hemoglobin 8.9 g/dL (14.0-18.0); Lymphocyte % 3.1 %; Mean Corpuscular HGB Conc 33 g/dL (31-36); Mean Corpuscular Hemoglobin 28 pg (27-31); Mean Corpuscular Volume 82 fL (80-94); Mean Platelet Volume 7.2 fL (7.4-10.4); Nucleated Red Blood Cells % 0.1; Platelet Count 235 10^3/uL (150-450); Red Blood Count 3.22 10^6 /uL (4.18-5.48); Red Cell Distribution Width 23 % (10-15)
[2020-03-10 04:41] LABS: Albumin 2.2 g/dL (3.2-5.2); Albumin/Globulin Ratio 0.7 (1-3); BUN/Creatinine Ratio 18.8 (8-20); C Reactive Protein 206.88 mg/L (<8.01); EGFR African American 111.7 (>60); EGFR Non-African American 92.3 (>60); Globulin 3.3 g/dL (2-4); Potassium 3.8 mmol/L (3.5-5.0); Total Bilirubin 0.3 mg/dL (0.2-1.0); Total Protein 5.5 g/dL (6.4-8.9)
[2020-03-10] MEDS ORDERED: Acetylcysteine INHALATION SOL 200 MG/ML NEB.SOLN 10 ML ONE (07:51)
[2020-03-10] MEDS: Albuterol 2.5mg/3 ml (0.083%) NEB.SOLN INH PRN ×2 (08:07→19:37)
[2020-03-10] MEDS: Nystatin SUSPENSION 100,000 UNITS/ML UDC PO SCH ×4 (08:27→21:00)
[2020-03-10] MEDS ORDERED: Vancomycin Trough Check NOTE FOLLOW UP ONE ×2 (10:30→11:30)
[2020-03-10 10:37] LABS: Body Fluid Source Pleural Fluid
[2020-03-10] MEDS: Cefepime 2 GM in Dextrose(*) 2 GM/50 ML BAG IV SCH ×2 (11:14→21:00)
[2020-03-10] MEDS: Vancomycin(*) 1,000 MG in NS 0.9% 250 ml 250 ML IV SCH ×2 (12:23→22:35)
[2020-03-10 13:31] LABS: Body Fluid Mono 3 %; Body Fluid Other Cells 2
[2020-03-11 03:42] LABS: ABS Basophils 0.1 10^3/ul (0-0.2); ABS Eosinophils 0.1 10^3/ul (0-0.6); ABS Lymphocytes 0.3 10^3/ul (1.0-4.8); ABS Monocytes 0.5 10^3/ul (0-0.8); Eosinophil % 0.7 %; Hematocrit 28 % (42-52); Hemoglobin 9.2 g/dL (14.0-18.0); Mean Corpuscular HGB Conc 33 g/dL (31-36); Mean Corpuscular Hemoglobin 28 pg (27-31); Mean Corpuscular Volume 82 fL (80-94); Mean Platelet Volume 6.9 fL (7.4-10.4); Nucleated Red Blood Cells % 0.1; Platelet Count 257 10^3/uL (150-450); Red Blood Count 3.36 10^6 /uL (4.18-5.48); Red Cell Distribution Width 23 % (10-15); White Blood Count 9.9 10^3/uL (3.5-10.8)
[2020-03-11 03:51] LABS: Calcium 8.1 mg/dL (8.6-10.3); EGFR African American 111.7 (>60); EGFR Non-African American 92.3 (>60); Magnesium 1.3 mg/dL (1.9-2.7); Potassium 3.9 mmol/L (3.5-5.0)
[2020-03-11] MEDS: Nystatin SUSPENSION 100,000 UNITS/ML UDC PO SCH ×4 (09:54→21:15)
[2020-03-11] MEDS ORDERED: Magnesium Sulf 4 GM/100 ML IV 4,000 MG/100 ML BAG IVPB ONE (10:03)
[2020-03-11] MEDS: Cefepime 2 GM in Dextrose(*) 2 GM/50 ML BAG IV SCH ×2 (10:03→21:08)
[2020-03-11] MEDS: Vancomycin(*) 1,000 MG in NS 0.9% 250 ml 250 ML IV SCH ×2 (11:45→22:20)
[2020-03-12 05:02] LABS: BUN/Creatinine Ratio 13.2 (8-20); Calcium 8.2 mg/dL (8.6-10.3); EGFR African American 96.3 (>60); EGFR Non-African American 79.6 (>60); Magnesium 1.9 mg/dL (1.9-2.7); Potassium 3.6 mmol/L (3.5-5.0)
[2020-03-12] MEDS: Nystatin SUSPENSION 100,000 UNITS/ML UDC PO SCH ×5 (07:54→20:57)
[2020-03-12] MEDS: Cefepime 2 GM in Dextrose(*) 2 GM/50 ML BAG IV SCH ×2 (09:06→22:39)
[2020-03-12] MEDS: Vancomycin(*) 1,000 MG in NS 0.9% 250 ml 250 ML IV SCH ×2 (10:05→22:57)
[2020-03-12 15:14] LABS: Fluid Type, Albumin PLEURAL
[2020-03-12 15:15] LABS: Fluid Type, Protein, Total PLEURAL
[2020-03-12] MEDS: Albuterol 2.5mg/3 ml (0.083%) NEB.SOLN INH PRN ×2 (20:08→20:10)
[2020-03-12] MEDS: Acetylcysteine INH SOL (RT) 200 MG/ML 4 ML VIAL INH PRN (20:15)
[2020-03-12] MEDS: Albuterol/Ipratropium NEB.SOL (2.5/0.5 MG) 3 ML NEB.SOLN INH SCH (23:34)
[2020-03-13] MEDS: Albuterol/Ipratropium NEB.SOL (2.5/0.5 MG) 3 ML NEB.SOLN INH SCH ×6 (01:36→23:35)
[2020-03-13 05:47] LABS: ABS Eosinophils 0.1 10^3/ul (0-0.6); ABS Lymphocytes 0.3 10^3/ul (1.0-4.8); ABS Monocytes 0.5 10^3/ul (0-0.8); Eosinophil % 0.9 %; Hematocrit 25 % (42-52); Hemoglobin 8.6 g/dL (14.0-18.0); Lymphocyte % 3.3 %; Mean Corpuscular HGB Conc 34 g/dL (31-36); Mean Corpuscular Hemoglobin 28 pg (27-31); Mean Corpuscular Volume 81 fL (80-94); Mean Platelet Volume 7.4 fL (7.4-10.4); Platelet Count 265 10^3/uL (150-450); Red Blood Count 3.09 10^6 /uL (4.18-5.48); Red Cell Distribution Width 23 % (10-15); White Blood Count 7.7 10^3/uL (3.5-10.8)
[2020-03-13 06:12] LABS: BUN/Creatinine Ratio 14.9 (8-20); Blood Urea Nitrogen 14 mg/dL (6-24); CO2 Carbon Dioxide 27 mmol/L (22-32); Calcium 8.3 mg/dL (8.6-10.3); Chloride 98 mmol/L (101-111); EGFR African American 92.7 (>60); EGFR Non-African American 76.6 (>60); Glucose 89 mg/dL (70-100); Sodium 130 mmol/L (135-145)
[2020-03-13 06:24] LABS: Anion Gap 5 mmol/L (2-11)
[2020-03-13] MEDS: Acetylcysteine INH SOL (RT) 200 MG/ML 4 ML VIAL INH PRN ×2 (07:24→19:41)
[2020-03-13] MEDS ORDERED: Vancomycin Trough Check NOTE FOLLOW UP ONE (08:30)
[2020-03-13] MEDS: Cefepime 2 GM in Dextrose(*) 2 GM/50 ML BAG IV SCH ×2 (08:55→21:50)
[2020-03-13] MEDS: Nystatin SUSPENSION 100,000 UNITS/ML UDC PO SCH ×4 (08:58→21:01)
[2020-03-13 11:19] LABS: Fluid Type, Glucose PLEURAL
[2020-03-13 11:43] LABS: EGFR African American 83.5 (>60)
[2020-03-13 12:25] LABS: Vancomycin Trough 21.7 mcg/mL
[2020-03-13 12:38] LABS: Lactate Dehydrogenase, BF 82 U/L
[2020-03-13] MEDS: Vancomycin(*) 1,000 MG in NS 0.9% 250 ml 250 ML IV SCH (13:07)
[2020-03-13] MEDS: Vancomycin(*) 750 MG in NS 0.9% 250 ml 250 ML IVPB SCH (14:02)
[2020-03-14] MEDS: Vancomycin(*) 750 MG in NS 0.9% 250 ml 250 ML IVPB SCH ×2 (02:18→14:54)
[2020-03-14] MEDS: Albuterol/Ipratropium NEB.SOL (2.5/0.5 MG) 3 ML NEB.SOLN INH SCH ×5 (03:12→20:09)
[2020-03-14] MEDS: Acetylcysteine INH SOL (RT) 200 MG/ML 4 ML VIAL INH PRN ×2 (07:18→20:09)
[2020-03-14] MEDS: Nystatin SUSPENSION 100,000 UNITS/ML UDC PO SCH (07:58)
[2020-03-14 09:03] LABS: Hematocrit 29 % (42-52); Hemoglobin 9.4 g/dL (14.0-18.0); Mean Corpuscular HGB Conc 33 g/dL (31-36); Mean Corpuscular Hemoglobin 27 pg (27-31); Mean Corpuscular Volume 82 fL (80-94); Mean Platelet Volume 6.9 fL (7.4-10.4); Platelet Count 252 10^3/uL (150-450); Red Blood Count 3.49 10^6 /uL (4.18-5.48); Red Cell Distribution Width 23 % (10-15); White Blood Count 7.2 10^3/uL (3.5-10.8)
[2020-03-14 09:15] LABS: BUN/Creatinine Ratio 14.3 (8-20); Calcium 8.6 mg/dL (8.6-10.3); EGFR African American 88.4 (>60); Magnesium 1.6 mg/dL (1.9-2.7); Phosphorus 2.5 mg/dL (2.5-5.0); Potassium 3.5 mmol/L (3.5-5.0)
[2020-03-14] MEDS: Cefepime 2 GM in Dextrose(*) 2 GM/50 ML BAG IV SCH ×2 (10:16→22:13)
[2020-03-14] MEDS ORDERED: Benzocaine/Butamben/Tetracain (CETACAINE - SINGLE USE) 5 gm TOPICAL ONE (12:20)
[2020-03-14] MEDS ORDERED: Lidocaine 1% VIAL 10 MG/ML VIAL ONE (12:21)
[2020-03-14] MEDS: Magnesium Sulfate 2 gm BAG 2 GM/50 ML BAG IVPB ONE ×2 (12:21→12:27)
[2020-03-14] MEDS ORDERED: fentaNYL 100 mcg/2 ml 50 MCG/ML VIAL ONE (13:15)
[2020-03-14] MEDS ORDERED: Propofol 10 MG/ML 20 ML BTL ONE (13:53)
[2020-03-14] MEDS ORDERED: Phenylephrine 40 mcg/mL 10mL (400mcg) SYRINGE ONE (13:53)
[2020-03-14] MEDS ORDERED: Levalbuterol HFA INHALER MDI ONE (13:53)
[2020-03-14] MEDS ORDERED: Dexamethasone IV 4 MG/ML VIAL 1 ml VIAL ONE (13:53)
[2020-03-14] MEDS ORDERED: Ondansetron 4 mg VIAL 2 MG/ML 2 ml VIAL ONE (13:53)
[2020-03-14] MEDS ORDERED: EPHEDrine (Pressors) 50 MG/ML VIAL ONE (13:53)
[2020-03-14] MEDS ORDERED: Succinylcholine 200 mg VIAL 20 mg/ml 10 ml VIAL (200 mg) ONE (13:53)
[2020-03-14] MEDS ORDERED: Levalbuterol 1.25MG/0.5ML NEB.SOL ONE (14:16)
[2020-03-14] MEDS: KCL 10 MEQ/50 ML IVPREMIX 10 MEQ/50 ML BAG IV SCH ×2 (14:54→15:46)
[2020-03-15] MEDS: Albuterol/Ipratropium NEB.SOL (2.5/0.5 MG) 3 ML NEB.SOLN INH SCH ×5 (00:16→19:39)
[2020-03-15] MEDS: Vancomycin(*) 750 MG in NS 0.9% 250 ml 250 ML IVPB SCH ×3 (02:36→17:46)
[2020-03-15 04:22] LABS: ABS Lymphocytes 0.1 10^3/ul (1.0-4.8); ABS Monocytes 0.2 10^3/ul (0-0.8); Eosinophil % 0.1 %; Hematocrit 27 % (42-52); Hemoglobin 9.1 g/dL (14.0-18.0); Lymphocyte % 2.5 %; Mean Corpuscular HGB Conc 34 g/dL (31-36); Mean Corpuscular Hemoglobin 28 pg (27-31); Mean Corpuscular Volume 82 fL (80-94); Mean Platelet Volume 6.8 fL (7.4-10.4); Platelet Count 214 10^3/uL (150-450); Red Blood Count 3.27 10^6 /uL (4.18-5.48); Red Cell Distribution Width 24 % (10-15); White Blood Count 5.9 10^3/uL (3.5-10.8)
[2020-03-15 04:27] LABS: BUN/Creatinine Ratio 19.1 (8-20); EGFR African American 98.8 (>60); EGFR Non-African American 81.6 (>60); Magnesium 1.7 mg/dL (1.9-2.7); Phosphorus 3.3 mg/dL (2.5-5.0); Potassium 3.7 mmol/L (3.5-5.0)
[2020-03-15] MEDS: Acetylcysteine INH SOL (RT) 200 MG/ML 4 ML VIAL INH PRN (08:11)
[2020-03-15] MEDS: Cefepime 2 GM in Dextrose(*) 2 GM/50 ML BAG IV SCH ×2 (09:55→21:33)
[2020-03-15] MEDS ORDERED: Vancomycin Trough Check NOTE FOLLOW UP ONE (13:30)
[2020-03-15] MEDS ORDERED: Morphine ORAL CONCENTRATE 5 MG/0.25 ML ORAL.SYRIN SL PRN (13:51)
[2020-03-16 05:39] LABS: Hematocrit 29 % (42-52); Hemoglobin 9.8 g/dL (14.0-18.0); Mean Corpuscular HGB Conc 34 g/dL (31-36); Mean Corpuscular Hemoglobin 27 pg (27-31); Mean Corpuscular Volume 81 fL (80-94); Mean Platelet Volume 6.6 fL (7.4-10.4); Platelet Count 245 10^3/uL (150-450); Red Blood Count 3.59 10^6 /uL (4.18-5.48); Red Cell Distribution Width 24 % (10-15); White Blood Count 7.9 10^3/uL (3.5-10.8)
[2020-03-16 05:58] LABS: BUN/Creatinine Ratio 18.6 (8-20); Calcium 7.7 mg/dL (8.6-10.3); EGFR African American 102.8 (>60); EGFR Non-African American 84.9 (>60); Potassium 3.2 mmol/L (3.5-5.0)
[2020-03-16 06:16] LABS: ABS Eosinophils 0.1 10^3/ul (0-0.6); ABS Lymphocytes 0.2 10^3/ul (1.0-4.8); ABS Monocytes 0.6 10^3/ul (0-0.8); Eosinophil % 1.6 %; Lymphocyte % 2.4 %
[2020-03-16] MEDS: Albuterol/Ipratropium NEB.SOL (2.5/0.5 MG) 3 ML NEB.SOLN INH SCH ×4 (06:51→19:40)
[2020-03-16] MEDS: Vancomycin(*) 750 MG in NS 0.9% 250 ml 250 ML IVPB SCH ×2 (07:34→17:37)
[2020-03-16] MEDS: Cefepime 2 GM in Dextrose(*) 2 GM/50 ML BAG IV SCH ×2 (09:32→22:36)
[2020-03-17] MEDS: Albuterol/Ipratropium NEB.SOL (2.5/0.5 MG) 3 ML NEB.SOLN INH SCH ×4 (01:01→19:31)
[2020-03-17] MEDS: Vancomycin(*) 750 MG in NS 0.9% 250 ml 250 ML IVPB SCH (05:55)
[2020-03-17] MEDS ORDERED: Vancomycin Trough Check NOTE FOLLOW UP ONE (06:00)
[2020-03-17 06:28] LABS: ABS Eosinophils 0.1 10^3/ul (0-0.6); ABS Lymphocytes 0.2 10^3/ul (1.0-4.8); ABS Monocytes 0.5 10^3/ul (0-0.8); Eosinophil % 1.3 %; Hematocrit 31 % (42-52); Hemoglobin 10.1 g/dL (14.0-18.0); Lymphocyte % 2.3 %; Mean Corpuscular HGB Conc 33 g/dL (31-36); Mean Corpuscular Hemoglobin 27 pg (27-31); Mean Corpuscular Volume 83 fL (80-94); Mean Platelet Volume 6.7 fL (7.4-10.4); Nucleated Red Blood Cells % 0.1; Platelet Count 243 10^3/uL (150-450); Red Blood Count 3.73 10^6 /uL (4.18-5.48); Red Cell Distribution Width 24 % (10-15); White Blood Count 7.1 10^3/uL (3.5-10.8)
[2020-03-17 06:41] LABS: BUN/Creatinine Ratio 15.6 (8-20); Calcium 8.5 mg/dL (8.6-10.3); EGFR African American 90.5 (>60); EGFR Non-African American 74.8 (>60); Potassium 3.3 mmol/L (3.5-5.0)
[2020-03-17 06:58] LABS: Vancomycin Trough 22.7 mcg/mL
[2020-03-17] MEDS: Cefepime 2 GM in Dextrose(*) 2 GM/50 ML BAG IV SCH ×2 (09:40→21:40)
[2020-03-17] MEDS: Vancomycin(*) 500 MG in NS 0.9% 250 ml 250 ML IVPB SCH (23:23)
[2020-03-18] MEDS: Albuterol/Ipratropium NEB.SOL (2.5/0.5 MG) 3 ML NEB.SOLN INH SCH ×3 (00:57→13:31)
[2020-03-18] MEDS: Cefepime 2 GM in Dextrose(*) 2 GM/50 ML BAG IV SCH (10:36)
[2020-03-18] MEDS: Vancomycin(*) 500 MG in NS 0.9% 250 ml 250 ML IVPB SCH (12:47)
[2020-03-18 14:53] VITALS: BP 155/55
[2020-03-19] MEDS ORDERED: Vancomycin Trough Check NOTE FOLLOW UP ONE (11:30)
== END 2020-03-18 16:10 | disposition hospice, inpatient (51) | DRG 193 ==
LOC: CHOA 08:16 → MED 10:06 → MEDTELE 03-08 09:09 → ICU 03-12 21:49 → MED 03-15 13:34
PROVIDERS: ADMIT Internal Medicine Hematology & Oncology; ATTEND Internal Medicine Hematology & Oncology